=== PATIENT | female | born 1950 | race African-American/Black ===

== ENCOUNTER 2016-11-15 11:59 | Day surgery (SDC) | payer MEDICARE, BC ==
[~2016-11-15 11:59] MED LIST: DIPHENHYDRAMINE HCL 50 MG/ML VIAL ONE; NALOXONE HCL INJ/PF 0.4 MG/1 ML SDV ONE
[2016-11-15] MEDS ORDERED: ONDANSETRON HCL INJ/PF 4 MG/2 ML SDV ONE (12:00)
[2016-11-15] MEDS ORDERED: PROMETHAZINE HCL INJ 25 MG/1 ML VIAL ONE (12:00)
[2016-11-15] MEDS ORDERED: GLUCAGON,HUMAN RECOMB 1 MG INJ ONE (12:01)
[2016-11-15] MEDS ORDERED: EPINEPHRINE INJ 1 MG/10 ML DISP.SYRIN ONE (12:01)
[2016-11-15] MEDS ORDERED: FLUMAZENIL INJ 0.5 MG/5 ML VIAL IV ONE (12:01)
[2016-11-15] MEDS: MIDAZOLAM 2 MG/2 ML INJ ONE ×2 (12:32→12:38)
[2016-11-15] MEDS: FENTANYL CITRATE INJ/PF 100 MCG/2 ML AMPUL ONE ×2 (12:34→12:36)
--- NOTE | 2016-11-15 12:47 | Operative Report ---
Operative Report DATE OF SURGERY: 11/15/16 Operative Report: The risks benefits and alternatives of the procedure explained to the patient in detail and informed consent is obtained that GIF Olympus video scope was inserted into the patient's mouth and hypopharynx the esophagus is identified intubated and insufflated the scope was then advanced through the esophagus stomach and duodenum retroflexion maneuver is done the esophagus stomach and first and second portions of the duodenum examined PREOPERATIVE DIAGNOSIS: Gastroesophageal reflux disease, dyspepsia POSTOPERATIVE DIAGNOSIS: Gastritis, duodenitis OPERATION: EGD with biopsy SURGEON: JAIDEN MARTINES ANESTHESIA: Moderate Sedation - 4 mg of Versed, 75 g of fentanyl. TISSUE REMOVED OR ALTERED: Gastric specimens obtained rule out Helicobacter pylori COMPLICATIONS: None. ESTIMATED BLOOD LOSS: none. INTRAOPERATIVE FINDINGS: Patent esophagus. Gastritis. Duodenitis PROCEDURE: Patient tolerated the procedure well. No immediate postprocedure complications are noted. Patient is discharged in good condition. Discharge date 11/15/2016. Discharge diet: Regular. Discharge activity: Regular. Patient does have a 2-3 week follow-up to discuss findings. Patient is instructed to call the office or proceed to the emergency room to any further problems or questions. Follow-up with biopsies
[2016-11-15 13:46] VITALS: BP 134/60
== END 2016-11-15 13:53 | disposition home or self-care (01) ==
LOC: END 11:59
PROVIDERS: ATTEND Internal Medicine Gastroenterology
PROC: 0DB68ZX Excision of Stomach, Via Natural or Artificial Opening Endoscopic, Diagnostic (ICD-10-PCS; principal; 2016-11-15 12:30)
DX: K21.9 Gastro-esophageal reflux disease without esophagitis (principal); K29.50 Unspecified chronic gastritis without bleeding; K29.80 Duodenitis without bleeding; B96.81 Helicobacter pylori [H. pylori] as the cause of diseases classified elsewhere; I10 Essential (primary) hypertension; E11.9 Type 2 diabetes mellitus without complications; Z72.0 Tobacco use; E78.5 Hyperlipidemia, unspecified; Z79.899 Other long term (current) drug therapy; Z79.4 Long term (current) use of insulin; Z79.82 Long term (current) use of aspirin
CPT/HCPCS: 43239; 82962; 88342 ×2; 88305 ×2; J2250; J3010; J1610; J0171; J1200; J2310; J2405; J2550; J3490

== ENCOUNTER → 2017-06-25 | Outpatient (CLI) | payer MEDICARE, BC ==
--- NOTE | 2017-06-25 14:46 | WOMENS IMAGING REPORT ---
EXAM DESCRIPTION: BILAT SCREENING MAMMO W/CAD COMPLETED DATE/TIME: 06/25/2017 8:20 am REASON FOR STUDY: SCREENING MAMMO Z12.31 ENCNTR SCREEN MAMMOGRAM FOR MALIGNANT NEOPLASM OF EDITH COMPARISON: None. TECHNIQUE: Standard craniocaudal and mediolateral oblique views of each breast recorded using digita l acquisition. LIMITATIONS: None. FINDINGS: No masses, calcifications or architectural distortion. No areas of suspicion. Read with the assistance of CAD. .[facility] - R2 Cenova Version 1.3 .[facility] - R2 Cenova Version 1.3 .[facility] - R2 Cenova Version 2.4 .[facility] [place] - R2 Cenova Version 2.4 .[facility] - R2 Cardiac Tech Version 9.2 IMPRESSION: NORMAL MAMMOGRAM. BIRADS 1. BREAST DENSITY: b. There are scattered areas of fibroglandular density. BIRAD: 1 NEGATIVE RECOMMENDATION: ROUTINE SCREENING COMMENT: The patient has been notified of the results by letter per SA requirements. Additional no tification policies are in place for contacting patient with suspicious or incomplete findings. Quality ID #[id number]: The [employer] recommends an annual screening mammogram for women aged 40 years or over. This facility utilizes a reminder system to ensure that all patients receive reminder letters, and/or direct phone calls for appointments. This includes reminders for routine scr eening mammograms, diagnostic mammograms, or other Breast Imaging Interventions when appropriate. Th is patient will be placed in the appropriate reminder system. The [employer] (ACR) has developed recommendations for screening MRI of the breast s in certain patient populations, to be used in conjunction with mammography. Breast MRI surveillanc e may be appropriate for women with more than 20% lifetime risk of developing breast cancer as deter mined by genetic testing, significant family history of the disease, or history of mantle radiation f or Hodgkins Disease. ACR Practice Guidelines 2008. TECHNICAL DOCUMENTATION: FINDING NUMBER: (1) ASSESSMENT: (1) JOB ID: [id number] [employer]- All Rights Reserved
== END ==
LOC: WI 07:41
PROVIDERS: ATTEND Physician Assistant
DX: Z12.31 Encounter for screening mammogram for malignant neoplasm of breast (principal)
CPT/HCPCS: 77067; G0202

== ENCOUNTER 2018-04-02 08:22 | Emergency (ER) | payer MEDICARE, BC ==
[2018-04-02] MEDS ORDERED: METHYLPREDNISOLONE INJ 125 MG/2 ML SDV IV ONE (09:43)
[2018-04-02] MEDS ORDERED: IPRATROPIUM/ALBUTEROL 0.5-2.5 MG/3 ML AMPUL NEB ONE (09:43)
--- NOTE | 2018-04-02 09:47 | ER Document Report ---
ED General - General Chief Complaint: Breathing Difficulty Stated Complaint: BREATHING DIFFICULTY Time Seen by Provider: 04/02/18 09:20 Mode of Arrival: Ambulatory Information source: Patient Notes: 67-year-old female with hypertension, diabetes, COPD presents with complaint of shortness of breath. Patient reports chronic shortness of breath that has worsened over the last few days. She states that she had a recent increase in her home oxygen from 2 L to 3 L 24 hours a day. Patient states that she came to the hospital today to obtain a chest x-ray which was ordered by her forest manager. She states that without her oxygen she tried to walk into the hospital but became very short of breath and went back to get her oxygen but by that time she could not catch her breath. She does report that she had a right swollen leg last week, which has now resolved. She denies prior history of PE, DVT, cancer, estrogen use, recent travel, recent surgery, recent trauma.. She does have an associated productive cough that she states is chronic. Denies any fever, chills, chest pain, abdominal pain. TRAVEL OUTSIDE OF THE [place] IN LAST 30 DAYS: No - HPI Onset: Other Onset/Duration: Gradual, Persistent, Worse Quality of pain: No pain Severity: None Associated symptoms: Productive cough, Shortness of breath Exacerbated by: Movement, Walking Relieved by: Other - O2 Similar symptoms previously: Yes Recently seen / treated by doctor: Yes - Related Data Allergies/Adverse Reactions: No Known Allergies Allergy (Verified 04/02/18 09:21) Past Medical History - General Information source: Patient, REPLACED BY [facility] Records - Social History Smoking Status: Never Smoker Chew tobacco use (# tins/day): No Frequency of alcohol use: None Drug Abuse: None Lives with: Family Family History: Reviewed & Not Pertinent Patient has suicidal ideation: No Patient has homicidal ideation: No - Past Medical History Cardiac Medical History: Reports: Hx Hypertension Denies: Hx Coronary Artery Disease, Hx Heart Attack Pulmonary Medical History: Reports: Hx COPD Denies: Hx Asthma, Hx Bronchitis, Hx Pneumonia Neurological Medical History: Denies: Hx Cerebrovascular Accident, Hx Seizures Endocrine Medical History: Reports: Hx Diabetes Mellitus Type 2 Renal/ Medical History: Denies: Hx Peritoneal Dialysis Musculoskeltal Medical History: Denies Hx Arthritis Past Surgical History: Reports: Hx Gynecologic Surgery - pap smear cone bx, Hx Hysterectomy, Hx Oral Surgery, Hx Orthopedic Surgery - finger. Denies: Hx Pacemaker - Immunizations Immunizations up to date: Yes Hx Diphtheria, Pertussis, Tetanus Vaccination: Yes Hx Pneumococcal Vaccination: 08/21/16 Review of Systems - Review of Systems Notes: REVIEW OF SYSTEMS: CONSTITUTIONAL : Denies fever, chills, or sweats. Denies recent illness. Denies weight loss, recent hospitalizations. EENT: Denies visula changes, eye pain. Denies nasal or sinus congestion or discharge. Denies sore throat, oral lesions, difficulty swallowing. CARDIOVASCULAR: Denies chest pain. Denies palpitations or racing or irregular heart beat. Denies lower extremity edema. RESPIRATORY: Worsening shortness of breath, increased home O2 requirement. GASTROINTESTINAL: Denies abdominal pain or distention. Denies nausea, vomiting , or diarrhea. Denies blood in vomitus, stools, or per rectum. Denies black, tarry stools. Denies constipation. GENITOURINARY: Denies difficulty urinating, painful urination, burning, frequency, blood in urine, or vaginal discharge. MUSCULOSKELETAL: Denies back or neck pain or stiffness. Denies joint pain or swelling. SKIN: Denies rash, lesions or sores. HEMATOLOGIC : Denies easy bruising or bleeding. LYMPHATIC: Denies swollen, enlarged glands. NEUROLOGICAL: Denies confusion or altered mental status. Denies passing out or loss of consciousness. Denies dizziness or lightheadedness. Denies headache. Denies weakness or paralysis or loss of use of either side. Denies problems with gait or speech. Denies sensory loss, numbness, or tingling. Denies seizures. PSYCHIATRIC: Denies anxiety or stress. Denies depression, suicidal ideation, or homicidal ideation. Physical Exam - Vital signs Vitals: Temp Pulse Resp BP Pulse Ox 97.7 F 103 H 36 H 146/97 H 93 04/02/18 08:39 04/02/18 08:39 04/02/18 08:39 04/02/18 08:39 04/02/18 08:39 - Notes Notes: PHYSICAL EXAMINATION: GENERAL: Well-appearing, well-nourished in mild distress HEAD: Atraumatic, normocephalic. EYES: Pupils equal round and reactive to light, extraocular movements intact, conjunctiva are normal. ENT: Nares patent, oropharynx clear without exudates. Moist mucous membranes. NECK: Normal range of motion, supple without lymphadenopathy LUNGS: Tachypneic. Expiratory wheezing in the lower lung lawson. HEART: tachycardic, regular rhythm without murmurs, no rubs ABDOMEN: Soft, nontender, nondistended abdomen. No guarding, no rebound. No masses appreciated. Female : deferred Musculoskeletal: Normal range of motion, no pitting or edema. No cyanosis. NEUROLOGICAL: Cranial nerves grossly intact. Normal speech, normal gait. Normal sensory, motor exams PSYCH: Normal mood, normal affect. SKIN: Warm, Dry, normal turgor, no rashes or lesions noted. Course - Re-evaluation Re-evalutation: Laboratory 04/02/18 04/02/18 04/02/18 10:19 10:19 10:19 WBC 6.1 RBC 5.68 H Hgb 12.7 Hct 40.4 MCV 71 L MCH 22.3 L MCHC 31.4 L RDW 14.8 H Plt Count 200 Seg Neutrophils % 82.9 H Lymphocytes % 9.5 L Monocytes % 5.3 Eosinophils % 1.9 Basophils % 0.4 Absolute Neutrophils 5.1 Absolute Lymphocytes 0.6 Absolute Monocytes 0.3 Absolute Eosinophils 0.1 Absolute Basophils 0.0 Sodium 143.8 Potassium 4.3 Chloride 105 Carbon Dioxide 27 Anion Gap 12 BUN 14 Creatinine 0.84 Est GFR ( Amer) > 60 Est GFR (Non-Af Amer) > 60 Glucose 150 H Calcium 9.8 Total Bilirubin 0.3 Direct Bilirubin 0.1 Neonat Total Bilirubin Not Reportable Neonat Direct Bilirubin Not Reportable Neonat Indirect Bili Not Reportable AST 38 H ALT 31 Alkaline Phosphatase 78 Creatine Kinase 71 CK-MB (CK-2) 2.25 Troponin I 0.198 NT-Pro-B Natriuret Pep Total Protein 7.4 Albumin 4.3 04/02/18 10:19 WBC RBC Hgb Hct MCV MCH MCHC RDW Plt Count Seg Neutrophils % Lymphocytes % Monocytes % Eosinophils % Basophils % Absolute Neutrophils Absolute Lymphocytes Absolute Monocytes Absolute Eosinophils Absolute Basophils Sodium Potassium Chloride Carbon Dioxide Anion Gap BUN Creatinine Est GFR ( Amer) Est GFR (Non-Af Amer) Glucose Calcium Total Bilirubin Direct Bilirubin Neonat Total Bilirubin Neonat Direct Bilirubin Neonat Indirect Bili AST ALT Alkaline Phosphatase Creatine Kinase CK-MB (CK-2) Troponin I NT-Pro-B Natriuret Pep 62 Total Protein Albumin Chest/Abdomen CTA 04/02/18 09:42 IMPRESSION: Large pericardial effusion Mediastinal and right hilar adenopathy with asymmetric right lung pulmonary vascular congestion and interstitial infiltrates likely related to venous congestion/ lymphatic obstruction at the right hilum. 67-year-old female with hypertension, diabetes, COPD presents with complaint of shortness of breath. Patient reports chronic shortness of breath that has worsened over the last few days. She states that she had a recent increase in her home oxygen from 2 L to 3 L 24 hours a day. Patient states that she came to the hospital today to obtain a chest x-ray which was ordered by her forest manager. She states that without her oxygen she tried to walk into the hospital but became very short of breath and went back to get her oxygen but by that time she could not catch her breath. She does report that she had a right swollen leg last week, which has now resolved. She denies prior history of PE, DVT, cancer, estrogen use, recent travel, recent surgery, recent trauma. Upon arrival patient was placed on general milling superintendent and EKG was obtained which shows the patient to be in sinus tachycardia but does show low voltage throughout. Patient is tachypneic, hypoxic, tachycardic. She is in mild distress. There is no accessory muscle use, diaphoresis. She is able to speak in full sentences. CTA was obtained and negative for PE but did show a large presumably pericardial effusion. Bedside ultrasound was obtained and showed a large pericardial effusion, collapse of the right ventricle and right atrium as well as a plethoric IVC. Patient was placed in trauma 1, pericardiocentesis kit placed at the bedside. Patient received fentanyl during her ED course. She was accepted to [facility] by . She was transferred via air. Patient remained stable throughout her ED course. She remained alert, awake. She had no episodes of hypotension, altered mental status, worsening hypoxia. Patient and family made aware of the findings. She is agreeable to transfer to [facility] for likely pericardial window. Patient reevaluated multiple times and is without need for intubation, pericardiocentesis. 04/02/18 11:33 Bedside ultrasound performed and shows large pericardial effusion with evidence of tamponade. Right atrium collapses. 04/02/18 11:47 [facility] contacted for transfer. 04/02/18 11:48 Patient placed on monitor and pericardial-centesis tray at bedside. 04/02/18 19:56 04/02/18 19:56 04/02/18 20:02 04/02/18 20:04 - Vital Signs Vital signs: Temp Pulse Resp BP Pulse Ox 97.9 F 103 H 32 H 151/97 H 93 04/02/18 12:46 04/02/18 08:39 04/02/18 12:46 04/02/18 12:46 04/02/18 12:46 - Laboratory Result Diagrams: 04/02/18 10:19 04/02/18 10:19 Laboratory results interpreted by me: 04/02/18 04/02/18 10:19 10:19 RBC 5.68 H MCV 71 L MCH 22.3 L MCHC 31.4 L RDW 14.8 H Seg Neutrophils % 82.9 H Lymphocytes % 9.5 L Glucose 150 H AST 38 H - Diagnostic Test Radiology reviewed: Image reviewed, Reports reviewed - EKG Interpretation by Me EKG shows normal: Sinus rhythm Rate: Tachycardia Rhythm: NSR Voltage: Decreased voltage When compared to previous EKG there are: Changes noted Critical Care Note - Critical Care Note Total time excluding time spent on procedures (mins): 40 - minutes of critical care time spent in direct contact evaluating and reevaluating the patient, treating symptoms, reviewing labs and studies and speaking with family and consultants excluding any procedures Discharge - Discharge Clinical Impression: Cardiac tamponade, Pericardial effusion, Hypoxia, Elevated troponin Condition: Serious Disposition: [facility] Referrals: KEV ARANDA PA-C [Primary Care Provider] - Follow up as needed
[2018-04-02 10:40] LABS: ABSOLUTE EOSINOPHILS # (AUTO) 0.1 10^3/uL (0.0-0.6); ABSOLUTE LYMPHOCYTES (AUTO) 0.6 10^3/uL (0.5-4.7); ABSOLUTE MONOCYTES (AUTO) 0.3 10^3/uL (0.1-1.4); ABSOLUTE NEUT (AUTO) 5.1 10^3/uL (1.7-8.2); BASOPHILS % (AUTO) 0.4 % (0-2); EOSINOPHILS % (AUTO) 1.9 % (0-6); HEMATOCRIT 40.4 % (36.0-47.0); HEMOGLOBIN 12.7 g/dL (12.0-15.5); LYMPHOCYTES % (AUTO) 9.5 % (13-45); MEAN CORPUSCULAR HEMOGLOBIN 22.3 pg (27.0-33.4); MEAN CORPUSCULAR HGB CONC 31.4 g/dL (32.0-36.0); MEAN CORPUSCULAR VOLUME 71 fl (80-97); MONOCYTES % (AUTO) 5.3 % (3-13); PLATELET COUNT 200 10^3/uL (150-450); RED BLOOD COUNT 5.68 10^6/uL (3.72-5.28); RED CELL DISTRIBUTION WIDTH 14.8 % (11.5-14.0); SEGMENTED NEUTROPHILS % (AUTO) 82.9 % (42-78); TOTAL CELLS COUNTED % (AUTO) 100 %; WHITE BLOOD COUNT 6.1 10^3/uL (4.0-10.5)
[2018-04-02 10:54] LABS: ALANINE AMINOTRANSFERASE 31 U/L (9-52); ALBUMIN 4.3 g/dL (3.5-5.0); ALKALINE PHOSPHATASE 78 U/L (38-126); ANION GAP 12 (5-19); ASPARTATE AMINO TRANSFERASE 38 U/L (14-36); BILIRUBIN,DIRECT 0.1 mg/dL (0.0-0.4); BILIRUBIN,TOTAL 0.3 mg/dL (0.2-1.3); BLOOD UREA NITROGEN 14 mg/dL (7-20); CALCIUM 9.8 mg/dL (8.4-10.2); CARBON DIOXIDE 27 mmol/L (22-30); CHLORIDE 105 mmol/L (98-107); CREATINE KINASE 71 U/L (30-135); GLUCOSE 150 mg/dL (75-110); POTASSIUM 4.3 mmol/L (3.6-5.0); SODIUM 143.8 mmol/L (137-145); TOTAL PROTEIN 7.4 g/dL (6.3-8.2)
[2018-04-02 11:05] LABS: CREATINE KINASE MB 2.25 ng/mL (<4.55)
[2018-04-02 11:09] LABS: TROPONIN I 0.198 ng/mL
--- NOTE | 2018-04-02 11:33 | RADIOLOGY REPORT (SQ) ---
EXAM DESCRIPTION: CTA CHEST COMPLETED DATE/TIME: 04/02/2018 11:19 am REASON FOR STUDY: sob increased o2 requirement swollen leg COMPARISON: None. TECHNIQUE: CT scan of the chest performed using helical scanning technique with dynamic intravenous contrast injection. Images reviewed with lung, soft tissue and bone windows. Reconstructed coronal and sagittal MPR images reviewed. Additional 3 dimensional post-processing performed to develop Maximal Intensity Projection images ([place] P). All images stored on PACS. All CT scanners at this facility use dose modulation, iterative reconstruction, and/or weight based d osing when appropriate to reduce radiation dose to as low as reasonably achievable (ALARA). [facility]: Dose Right [facility]: CareDose [facility]: Dose Right [facility]: Teradose 4D [facility]: [employer] CONTRAST TYPE AND DOSE: Contrast bolus optimized for the pulmonary arteries. Not diagnostic for the aorta. RENAL FUNCTION: Creatinine 0.84 RADIATION DOSE: CT Rad equipment meets quality standard of care and radiation dose reduction techniq ues were employed. CTDIvol: 16.5 - 17.1 mGy. DLP: 612 mGy-cm. . LIMITATIONS: None. FINDINGS: LUNGS AND PLEURA: Lung apices exhibit moderate changes of obstructive lung disease right g reater than left. There is pulmonary vascular congestion with alveolar and interstitial infiltrate throughout the right lung. Patient has a large right hilar mass, lymphangitic spread of tumor in the right lung is possi ble. No right pleural effusion or pneumothorax. On the left side, no focal infiltrates are present. No pleural effusion. No pneumothorax. No left long pulmonary venous congestion. AORTA AND GREAT VESSELS: No aneurysm. Contrast bolus not optimized for the aorta. HEART: Large pericardial effusion. No significant coronary artery calcifications. PULMONARY ARTERIES: No emboli visualized in the main pulmonary arteries or the segmental branches. HILAR AND MEDIASTINAL STRUCTURES: There is diffuse mediastinal adenopathy, with the right peritrachea l 3.3 x 2.3 cm lymph node axial image 22, a prevascular 3.3 x 1.8 cm lymph node axial image 34, a rig ht hilar mass/ lymph node 3.2 by 2.8 cm axial image 48. HARDWARE: None in the chest. UPPER ABDOMEN: No significant findings. Limited exam. THYROID AND OTHER SOFT TISSUES: No masses. No adenopathy. BONES: No acute or significant finding. 3D MIPS: Confirm above findings. OTHER: Report discussed with Dr. Miller in the emergency room IMPRESSION: Large pericardial effusion Mediastinal and right hilar adenopathy with asymmetric right lung pulmonary vascular congestion and i nterstitial infiltrates likely related to venous congestion/ lymphatic obstruction at the right hilum . COMMENT: Quality ID # [id number]: Final reports with documentation of one or more dose reduction techniques (e.g., Automated exposure control, adjustment of the mA and/or kV according to patient size, use of iterative reconstruction technique) TECHNICAL DOCUMENTATION: JOB ID: [id number]- All Rights Reserved Reading location - IP/workstation name: [email or web address] [id number]
[2018-04-02] MEDS ORDERED: NORMAL SALINE 1000 ML 1,000 ML IV ONE (12:10)
[2018-04-02] MEDS ORDERED: FENTANYL CITRATE INJ/PF 100 MCG/2 ML AMPUL IV ONE (12:35)
[2018-04-02 13:11] VITALS: BP 151/97
--- NOTE | 2018-04-02 13:27 | EKG REPORT ---
SEVERITY:- BORDERLINE ECG - SINUS RHYTHM LOW VOLTAGE THROUGHOUT : Confirmed by: Oj Coleman MD 02-Apr-2018 13:26:53
== END 2018-04-02 12:50 | disposition short-term general hospital (02) ==
LOC: ER 08:22
DX: I31.3 Pericardial effusion (noninflammatory) (principal); I31.4 Cardiac tamponade; R74.8 Abnormal levels of other serum enzymes; R09.02 Hypoxemia; I10 Essential (primary) hypertension; J44.9 Chronic obstructive pulmonary disease, unspecified; E11.9 Type 2 diabetes mellitus without complications; Z99.81 Dependence on supplemental oxygen; R05 Cough; R59.0 Localized enlarged lymph nodes; R00.0 Tachycardia, unspecified
CPT/HCPCS: 93005; 94640; 99291; 96374; 96375; 36415; 82553; 82550; 85025; 80053; 84484; 83880; 71275; 93010; J3010; J2930; J7030; A9270; J7620

== ENCOUNTER → 2019-09-21 | Outpatient (CLI) | payer MEDICARE, BC ==
--- NOTE | 2019-09-21 09:17 | RADIOLOGY REPORT (SQ) ---
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 Images reviewed with lung, soft tissue and bone windows. Reconstructed coronal and sagittal MPR images reviewed. All images st ored on PACS. All CT scanners at this facility use dose modulation, iterative reconstruction, and/or weight based d osing when appropriate to reduce radiation dose to as low as reasonably achievable (ALARA). [facility]: Dose Right [facility]: CareDose [facility]: Dose Right [facility]: Teradose 4D [facility]: [employer] RADIATION DOSE: CT Rad equipment meets quality standard of care and radiation dose reduction techniq ues were employed. CTDIvol: 14.8 mGy. DLP: 584 mGy-cm. mGy. LIMITATIONS: No technical limitations. FINDINGS: LUNGS AND PLEURA: Obstructive lung disease is present in the bilateral upper lobes. There is also now increased interstitial markings throughout the medial aspect of the right upper lobe and medial aspect left upper lobe which could represent post radiation fibrosis. Trace right pleural effusion. No left pleural effusion No pneumothorax. No acute infiltrates. Airways are patent. HILAR AND MEDIASTINAL STRUCTURES: No mediastinal adenopathy. Right paratracheal lymph nodes seen on CT 04/02/2018 is no longer identified. No right hilar mass. HEART AND VASCULAR STRUCTURES: Stable cardiomegaly. Trace pericardial effusion UPPER ABDOMEN: 3 cm right upper pole renal cortical cyst THYROID AND OTHER SOFT TISSUES: No masses. No adenopathy. BONES: No significant finding. HARDWARE: None OTHER: No other significant findings. IMPRESSION: Right hilar mass, right paratracheal adenopathy has resolved. Obstructive lung disease. TECHNICAL DOCUMENTATION: JOB ID: [id number] Quality ID # [id number]: Final reports with documentation of one or more dose reduction techniques (e.g., Au tomated exposure control, adjustment of the mA and/or kV according to patient size, use of iterative reconstruction technique) 2010 [employer]- All Rights Reserved Reading location - IP/workstation name: [email or web address]
== END ==
LOC: RAD 08:04
PROVIDERS: ATTEND Radiology Radiation Oncology
DX: C34.91 Malignant neoplasm of unspecified part of right bronchus or lung (principal); J44.9 Chronic obstructive pulmonary disease, unspecified
CPT/HCPCS: 71250

== ENCOUNTER 2019-10-01 14:32 | Inpatient (IN) | payer BC, MEDICARE ==
[2019-10-01 15:31] LABS: INTERNATIONAL RATION (INR) 1.31; PROTHROMBIN TIME 16.4 SEC (11.4-15.4)
[2019-10-01 15:32] LABS: PARTIAL THROMBOPLASTIN TIME 33.2 SEC (23.5-35.8)
[2019-10-01 15:37] LABS: ALBUMIN 3.5 g/dL (3.5-5.0); ALKALINE PHOSPHATASE 93 U/L (38-126); ANION GAP 14 (5-19); ASPARTATE AMINO TRANSFERASE 22 U/L (14-36); BILIRUBIN,DIRECT 0.2 mg/dL (0.0-0.4); BILIRUBIN,TOTAL 0.7 mg/dL (0.2-1.3); BLOOD UREA NITROGEN 11 mg/dL (7-20); CALCIUM 8.9 mg/dL (8.4-10.2); CARBON DIOXIDE 21 mmol/L (22-30); CHLORIDE 106 mmol/L (98-107); GLUCOSE 124 mg/dL (75-110); POTASSIUM 3.5 mmol/L (3.6-5.0)
[2019-10-01] MEDS ORDERED: ENOXAPARIN SODIUM INJ 100 MG/1 ML DISP.SYRIN SUBCUT ONE (16:49)
[2019-10-01] MEDS ORDERED: HEPARIN SOD (PORCINE) 1,000 UNIT/ML 10 ML VIAL IV ONE (17:07)
[2019-10-01 17:25] LABS: ABSOLUTE BASOPHILS # (AUTO) 0.1 10^3/uL (0.0-0.2); ABSOLUTE LYMPHOCYTES (AUTO) 0.7 10^3/uL (0.5-4.7); ABSOLUTE MONOCYTES (AUTO) 0.6 10^3/uL (0.1-1.4); ABSOLUTE NEUT (AUTO) 6.5 10^3/uL (1.7-8.2); BASOPHILS % (AUTO) 0.7 % (0-2); EOSINOPHILS % (AUTO) 0.4 % (0-6); HEMATOCRIT 33.6 % (36.0-47.0); HEMOGLOBIN 10.5 g/dL (12.0-15.5); LYMPHOCYTES % (AUTO) 8.5 % (13-45); MEAN CORPUSCULAR HEMOGLOBIN 22.3 pg (27.0-33.4); MEAN CORPUSCULAR HGB CONC 31.4 g/dL (32.0-36.0); MEAN CORPUSCULAR VOLUME 71 fl (80-97); MONOCYTES % (AUTO) 7.3 % (3-13); RED BLOOD COUNT 4.74 10^6/uL (3.72-5.28); RED CELL DISTRIBUTION WIDTH 19.2 % (11.5-14.0); SEGMENTED NEUTROPHILS % (AUTO) 83.1 % (42-78); TOTAL CELLS COUNTED % (AUTO) 100 %; WHITE BLOOD COUNT 7.8 10^3/uL (4.0-10.5)
[2019-10-01 17:33] LABS: PLATELET COUNT 84 10^3/uL (150-450)
--- NOTE | 2019-10-01 17:56 | ER Document Report ---
ED General - General Chief Complaint: Shortness Of Breath Stated Complaint: SHORTNESS OF BREATH Time Seen by Provider: 10/01/19 14:52 Primary Care Provider: TIARA CHAPMAN PA-C [Primary Care Provider] - Follow up as needed TRAVEL OUTSIDE OF THE [place] IN LAST 30 DAYS: No - HPI Notes: Patient is a 69-year-old female with a known history of metastatic lung adenocarcinoma, status post multiple chemotherapy and radiation treatments, who presents emergency department for evaluation. She was seen in Dr. Hood's office earlier today, was found to be hypoxic and tachycardic. She was sent for CT angiogram which revealed bilateral lower lobe pulmonary emboli. The patient denies any pain. She states she has been somewhat short of breath. No hemoptysis. She states she is been taking her medications as prescribed, including Xarelto, which she is unsure why she takes. - Related Data Allergies/Adverse Reactions: No Known Allergies Allergy (Verified 04/02/18 09:21) Past Medical History - General Information source: Patient - Social History Smoking Status: Former Smoker Family History: Reviewed & Not Pertinent Patient has suicidal ideation: No Patient has homicidal ideation: No - Past Medical History Cardiac Medical History: Reports: Hx Hypercholesterolemia, Hx Hypertension, Hx Pulmonary Embolism Denies: Hx Coronary Artery Disease, Hx Heart Attack Pulmonary Medical History: Reports: Hx COPD Denies: Hx Asthma, Hx Bronchitis, Hx Pneumonia Neurological Medical History: Denies: Hx Cerebrovascular Accident, Hx Seizures Endocrine Medical History: Reports: Hx Diabetes Mellitus Type 2 Renal/ Medical History: Denies: Hx Peritoneal Dialysis Malignancy Medical History: Reports: Hx Lung Cancer GI Medical History: Reports: Hx Gastroesophageal Reflux Disease Musculoskeletal Medical History: Denies Hx Arthritis Past Surgical History: Reports: Hx Gynecologic Surgery - pap smear cone bx, Hx Hysterectomy, Hx Oral Surgery, Hx Orthopedic Surgery - finger. Denies: Hx Pacemaker - Immunizations Immunizations up to date: Yes Hx Diphtheria, Pertussis, Tetanus Vaccination: Yes Hx Pneumococcal Vaccination: 08/21/16 Review of Systems - Review of Systems Constitutional: No symptoms reported EENT: No symptoms reported Cardiovascular: No symptoms reported Respiratory: See HPI Gastrointestinal: No symptoms reported Genitourinary: No symptoms reported Musculoskeletal: No symptoms reported Skin: No symptoms reported Neurological/Psychological: No symptoms reported Physical Exam - Vital signs Vitals: Resp Pulse Ox 27 H 89 L 10/01/19 14:42 10/01/19 14:42 - Notes Notes: This is a 69-year-old female who appears mildly older than her stated age, no acute distress. She is mildly tachypneic, but otherwise resting comfortably. Vital signs reviewed, please refer to chart. Head is normocephalic, atraumatic. Pupils equal round, reactive to light. Neck is supple without meningismus. Heart is regular rate and rhythm. Lungs reveal diminished breath sounds but no wheezes, rales, rhonchi. Abdomen is soft, nontender, normoactive bowel sounds throughout. Extremities without cyanosis, clubbing. Posterior calves are nontender. Peripheral pulses are equal. Skin is warm and dry. Patient is awake, alert, neurological exam is nonfocal. Course - Re-evaluation Re-evalutation: 10/01/19 17:54 Patient presents emergency department for evaluation. She has known pulmonary emboli. She laboratory medications obtained, EKG. I did order coags as well. No significant change compared to prior study. There was a delay in obtaining her CBC because her platelets had initially been low, but this was found to be artifactual. Her troponin was elevated. I suspect this is likely secondary to the pulmonary emboli. Initially I spoke with her primary care physician, who recommended that I speak to her oncologist. I was unable to directly reach her oncologist, but I did speak to the oncology fellow, Dr. Alvarez, regarding this patient. He states certainly this patient needs medical admission, but he is not see it is urgent at this point that the patient be transferred to [facility]. In the meantime I spoke with Dr. Hood, who did speak directly with her oncologist, who had additional concerns and recommended that she be transferred. The patient, however, does not want to be transferred. We talked at length about the increased risk of staying here, especially with her multiple comorbidities. She voiced understanding and still wants to stay here in the this smaller [facility] without the same intervention capabilities. She voiced understanding this and still wants to stay. Dr. Hood will take care of the patient here. An echocardiogram was ordered at his behest, and Dr. Romero was notified in regards to consultation on this patient as well as need for evaluation of the echocardiogram. Otherwise, patient is currently stable, on oxygen, heart rate of 105. We will admit the patient to [facility] for further care. 10/01/19 17:56 - Vital Signs Vital signs: Temp Pulse Resp BP Pulse Ox 97.9 F 20 144/74 H 94 10/01/19 14:45 10/01/19 17:01 10/01/19 17:01 10/01/19 17:01 - Laboratory Result Diagrams: 10/01/19 16:47 10/01/19 14:42 Laboratory results interpreted by me: 10/01/19 10/01/19 10/01/19 14:42 14:42 16:47 Hgb 10.5 L Hct 33.6 L MCV 71 L MCH 22.3 L MCHC 31.4 L RDW 19.2 H Plt Count 84 L Lymph % (Auto) 8.5 L Seg Neutrophils % 83.1 H PT 16.4 H Potassium 3.5 L Carbon Dioxide 21 L Est GFR (MDRD) Non-Af 54 L Glucose 124 H - Diagnostic Test Radiology reviewed: Reports reviewed Radiology results interpreted by me: 10/01/19 17:56 Radiology report from earlier today reviewed - EKG Interpretation by Me Additional EKG results interpreted by me: 10/01/19 17:56 Sinus tachycardia with a rate of 105 bpm. Right axis deviation. Near global T wave inversion, concerning for ischemia Critical Care Note - Critical Care Note Total time excluding time spent on procedures (mins): 45 Discharge - Discharge Clinical Impression: Hypoxia Pulmonary emboli Qualifiers: Chronicity: acute Acute cor pulmonale presence: unspecified Condition: Stable Disposition: ADMITTED INPATIENT Admitting Provider: Hood Unit Admitted: [facility] Referrals: TIARA CHAPMAN PA-C [Primary Care Provider] - Follow up as needed
[2019-10-01] MEDS ORDERED: ONDANSETRON HCL INJ/PF 4 MG/2 ML SDV IV PRN (18:10)
[2019-10-01] MEDS ORDERED: ACETAMINOPHEN 325 MG TABLET PO PRN (18:10)
[2019-10-01] MEDS ORDERED: DEXTROSE 50%-WATER 25 GM/50 ML DISP.SYRIN IV PRN ×4 (18:17→18:22)
[2019-10-01] MEDS ORDERED: DEXTROSE 40% GEL 15 GM TUBE PO PRN ×4 (18:17→18:22)
[2019-10-01] MEDS ORDERED: GLUCAGON,HUMAN RECOMB 1 MG INJ IM PRN ×2 (18:17→18:22)
--- NOTE | 2019-10-01 18:21 | Progress Note ---
Provider Note Provider Note: Patient seen and examined and very extensive discussion with the patient Oncology At [facility] and patience do not want to go to the [place] want to stay here at this point admitting the patient in the hospital for the recurrent be elevated troponin and cancel the local Oncology and cardiologyAnd the patient understand about the not going to the [facility] but will continue to treat the patient should have a stage four lung cancer with the pericardial involvement Patient admitting in the [facility] you start at a lower looks therapy nebulizer treatment and oxygen and hopefully patients improve discussed with the patient and the family regarding the patiesnt current conditions
--- NOTE | 2019-10-01 18:43 | PDOC CONSULTATION ---
Consultation Consult Date: 10/01/19 Attending physician:: FRANTZ HOOD Provider Consulted: GONSALO LINDER Consult reason:: Pericardial effusion, Elevated Troponin History of Present Illness Admission Date/PCP: 10/01/19 18:11 TIARA CHAPMAN PA-C Patient complains of: Dyspnea History of Present Illness: FLO STOLL is a 69 year old female Who presented to the office of Dr. Hood with complaints of respiratory distress. CT scan of the chest was performed in the emergency room which showed the presence of bilateral pulmonary emboli. Patient is known to have stage IV lung cancer involving both lungs. It is reported to me that last year patient h ad a similar presentation with malignant process involving the pericardium with pericardial effusion. She ended up requiring a pericardial window at [place]. Presently since admission to the emergency room her symptoms are much improved. She no longer reports any dyspnea. Apparently she was p rofoundly hypoxemic earlier. She is resting comfortably. She is a former smoker. She does not have any ports. She has had immunotherapy chemotherapy as well as radiation. No familial illnesses are documented. Past Medical History Cardiac Medical History: Reports: Hyperlipidema, Hypertension, Pulmonary Embolism Denies: Coronary Artery Disease, Myocardial Infarction Pulmonary Medical History: Reports: Chronic Obstructive Pulmonary Disease (COPD) Denies: Asthma, Bronchitis, Pneumonia Neurological Medical History: Denies: Seizures Endocrine Medical History: Reports: Diabetes Mellitus Type 2 Malignancy Medical History: Reports: Lung Cancer GI Medical History: Reports: Gastroesophageal Reflux Disease Musculoskeltal Medical History: Denies: Arthritis Hematology: Denies: Anemia Past Surgical History Past Surgical History: Reports: Hysterectomy, Orthopedic Surgery - finger Denies: Pacemaker Social History Smoking Status: Former Smoker Family History Family History: Reviewed & Not Pertinent Parental Family History Reviewed: Yes - No familial illnesses Children Family History Reviewed: NA Sibling(s) Family History Reviewed.: NA Medication/Allergy Home Medications: Fluticasone/Umeclidin/Vilanter [Trelegy 100-62.5-25 Mcg Ellipta 14 Dose/Dpi] 1 puff IH DAILY 04/02/18 Insulin Glargine,Hum.rec.anlog [Lantus] 50 unit SQ QHS 04/02/18 Losartan/Hydrochlorothiazide [Losartan-Hctz 50-12.5 mg Tab] 1 each PO DAILY 04/02/18 Pravastatin Sodium 20 mg PO DAILY 04/02/18 Allergies/Adverse Reactions: No Known Allergies Allergy (Verified 04/02/18 09:21) Review of Systems Breasts: PRESENT: as per HPI Cardiovascular: PRESENT: as per HPI Respiratory: PRESENT: cough, dyspnea Physical Exam Vital Signs: Temp Pulse Resp BP Pulse Ox 97.9 F 20 144/74 H 94 10/01/19 14:45 10/01/19 17:01 10/01/19 17:01 10/01/19 17:01 Intake & Output 09/30/19 10/01/19 10/02/19 06:59 06:59 06:59 Weight 88.3 kg General appearance: PRESENT: no acute distress, obese Head exam: PRESENT: atraumatic, normocephalic Eye exam: PRESENT: conjunctiva pink, EOMI Mouth exam: PRESENT: moist Neck exam: PRESENT: other - There are no dilated neck veins. Kussmaul sign is negative. Respiratory exam: PRESENT: rales - Basal, tachypnea, wheezes Cardiovascular exam: PRESENT: +S1, +S2, tachycardia GI/Abdominal exam: PRESENT: soft Rectal exam: PRESENT: deferred Musculoskeletal exam: PRESENT: normal inspection Neurological exam: PRESENT: alert, awake, oriented to person, oriented to place, oriented to time Psychiatric exam: PRESENT: appropriate affect Skin exam: PRESENT: dry, warm Results Laboratory Results: 10/01/19 16:47 10/01/19 14:42 10/01/19 10/01/19 10/01/19 14:42 14:42 16:47 WBC Cancelled 7.8 RBC Cancelled 4.74 Hgb Cancelled 10.5 L Hct Cancelled 33.6 L MCV Cancelled 71 L MCH Cancelled 22.3 L MCHC Cancelled 31.4 L RDW Cancelled 19.2 H Plt Count Cancelled 84 L Seg Neutrophils % Cancelled 83.1 H Sodium 141.0 Potassium 3.5 L Chloride 106 Carbon Dioxide 21 L Anion Gap 14 BUN 11 Creatinine 1.02 Est GFR ( Amer) > 60 Glucose 124 H Calcium 8.9 Total Bilirubin 0.7 AST 22 Alkaline Phosphatase 93 Total Protein 7.0 Albumin 3.5 10/01/19 14:42 Troponin I 0.245 EKG Comments: Twelve-lead EKG 10/01/2019. 1525 hrs. Sinus tachycardia, left axis deviation, poor R wave progression, nonspecific ST- T abnormalities, ventricular rate is 105 bpm, QTC is mildly prolonged at [address] chest, right hilar mass, infiltrative lung process, no significant pericardial effusion is mentioned. Multiple pulmonary emboli were noted. Assessment & Plan - Diagnosis (1) Elevated troponin Plan: Possibly on account of hypoxia and or right ventricular strain in the context of pulmonary embolism. Supportive care. Does not appear to be ACS. EKG and clinical presentation do not support this to be the case. (2) Hypoxia Is this a current diagnosis for this admission?: Yes Plan: Hypoxia appears to be better. Profound hypoxic and resultant troponin elevation. Likely this is the explanation given clinical context. Patient does not have prior history of coronary artery disease and does not behave like acute coronary syndrome. Supplemental oxygen and systemic anticoagulation for pulmonary embolism (3) Pulmonary emboli Qualifiers: Chronicity: acute Acute cor pulmonale presence: unspecified Is this a current diagnosis for this admission?: Yes Plan: Presently on enoxaparin therapy. Transition to directly acting oral agents for long-term systemic anticoagulation. (5) Pericardial effusion Is this a current diagnosis for this admission?: Yes Plan: Clinical presentation does not suggest the presence of a significant pericardial effusion. She has acceptable voltage on her EKGs and is only mildly tachycardic and is not hypotensive CT scan does not suggest the presence of significant pericardial effusion We will obtain transthoracic echocardiogram to evaluate this further. - Notes Notes: Supportive care for pulmonary embolism including systemic anticoagulation and supplemental oxygen We will obtain transthoracic echocardiogram to evaluate for pericardial effusion. Family was updated regarding the care plan as well.
[2019-10-01] MEDS: ENOXAPARIN SODIUM INJ 100 MG/1 ML DISP.SYRIN SUBCUT SCH (20:01)
[2019-10-01] MEDS ORDERED: HEPARIN SOD (PORCINE) 1,000 UNIT/ML 10 ML VIAL IV PRN (20:08)
[2019-10-01] MEDS: IPRATROPIUM/ALBUTEROL 0.5-2.5 MG/3 ML AMPUL NEB SCH (20:35)
--- NOTE | 2019-10-01 20:58 | EKG REPORT ---
SEVERITY:- ABNORMAL ECG - SINUS TACHYCARDIA LAD, CONSIDER LEFT ANTERIOR FASCICULAR BLOCK ABNRM R PROG, CONSIDER ASMI OR LEAD PLACEMENT NONSPECIFIC T ABNORMALITIES, DIFFUSE LEADS , NEW CHANGES SINCE 04/02/18 EKG. BORDERLINE PROLONGED QT INTERVAL : Confirmed by: Oj Coleman MD 01-Oct-2019 20:58:07
[2019-10-01] MEDS ORDERED: ENOXAPARIN SODIUM INJ 100 MG/1 ML DISP.SYRIN SUBCUT SCH ×2 (22:00)
[2019-10-01 22:38] LABS: ANION GAP 13 (5-19); BLOOD UREA NITROGEN 11 mg/dL (7-20); CALCIUM 9.5 mg/dL (8.4-10.2); CARBON DIOXIDE 23 mmol/L (22-30); CHLORIDE 105 mmol/L (98-107); GLUCOSE 220 mg/dL (75-110); POTASSIUM 3.8 mmol/L (3.6-5.0)
[2019-10-01] MEDS ORDERED: INSULIN GLARGINE,HUM.REC.ANLOG 1,000 UNIT/10 ML VIAL (PYX) SUBCUT ONE ×2 (22:39→22:53)
[2019-10-01] MEDS: INSULIN LISPRO 100 UNIT/ML 3 ML VIAL SUBCUT SCH (22:44)
[2019-10-01] MEDS: LOSARTAN POTASSIUM 50 MG TABLET PO SCH (22:44)
[2019-10-01] MEDS: INSULIN GLARGINE,HUM.REC.ANLOG 1,000 UNIT/10 ML VIAL SUBCUT SCH (22:55)
[2019-10-01] MEDS ORDERED: INFLUENZA QUAD (6MOS+) 2019-20 VAC 0.5 ML SYR IM ONE (23:24)
[2019-10-02] MEDS: IPRATROPIUM/ALBUTEROL 0.5-2.5 MG/3 ML AMPUL NEB SCH ×4 (02:31→20:41)
[2019-10-02 05:09] LABS: ABSOLUTE EOSINOPHILS # (AUTO) 0.1 10^3/uL (0.0-0.6); ABSOLUTE LYMPHOCYTES (AUTO) 0.7 10^3/uL (0.5-4.7); ABSOLUTE MONOCYTES (AUTO) 0.7 10^3/uL (0.1-1.4); ABSOLUTE NEUT (AUTO) 5.6 10^3/uL (1.7-8.2); BASOPHILS % (AUTO) 0.5 % (0-2); HEMATOCRIT 30.2 % (36.0-47.0); HEMOGLOBIN 9.6 g/dL (12.0-15.5); LYMPHOCYTES % (AUTO) 9.7 % (13-45); MEAN CORPUSCULAR HEMOGLOBIN 22.2 pg (27.0-33.4); MEAN CORPUSCULAR HGB CONC 31.6 g/dL (32.0-36.0); MEAN CORPUSCULAR VOLUME 70 fl (80-97); MONOCYTES % (AUTO) 9.5 % (3-13); RED CELL DISTRIBUTION WIDTH 18.7 % (11.5-14.0); SEGMENTED NEUTROPHILS % (AUTO) 79.3 % (42-78); TOTAL CELLS COUNTED % (AUTO) 100 %
[2019-10-02 05:28] LABS: PLATELET COUNT 65 10^3/uL (150-450)
[2019-10-02 05:35] LABS: CREATINE KINASE MB 1.56 ng/mL (<4.55)
[2019-10-02 05:52] LABS: TROPONIN I 0.224 ng/mL
[2019-10-02] MEDS: PANTOPRAZOLE SODIUM 40 MG TABLET.DR PO SCH (06:02)
[2019-10-02] MEDS: INSULIN LISPRO 100 UNIT/ML 3 ML VIAL SUBCUT SCH ×4 (07:53→21:56)
--- NOTE | 2019-10-02 08:25 | PDOC H&P ---
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 with a history of the pericardial effusions status post pericardial window at [place] last year patient is currently see thoracic oncology at [place] finished the chemo And immunotherapy and a recurrent of the disease with the last PET scan was done in AprilSocial some positive lymph node with negative MRI and patient was started on a radiation's treatments Patient also have a history of the pulmonary embolisms as per her record last year and currently taking the Xarelto but unfortunately patient unable about the blood clot No significant history of the COPD and oxygen dependent but currently not taking the oxygen at home's for since last couple of months came to my office yesterday with a complaining of a short of breath after long time from the last visit and patient was complaining some mild cough in my office patient O2 sat her resting condition was 80%'s and patient's walk to dropped up to 64 patient was put on at 2 L nasal cannula to go up to 90 to 94%'s At this point patient was sent to the CT angiogram because of the hypoxia as outpatients suggesting that multiple arteries on pulmonary have a some PE and patient was sent to the emergency department In the ER patient troponin was elevated but other than that no other acute findings patient is obviously taking the Xarelto with this blood clot not sure whether is old or new patient was put on the Lovenox and consult the local oncology Discussed with the patient's oncology Dr. whitlock At [place] myself and suggest that if the patient wants to come will transfer otherwise treat with over there with the injection therapy and repeat the echocardiogram Patients do not want to go to the [place] wants to continue to treatment here and start the patient on a Lovenox injection therapy consult the cardiology for further evaluation about elevated troponin and a history of the pericardial involvement the lung cancer Patients after putting the oxygen feeling much better denied any chest pain no short of breath some mild cough but other than that no other symptoms Very extensive discussions with the patient's and the family and the bedside regarding the all the test reports with the stage IV cancers recurrent clots and elevated troponin and patient understand very well Past Medical History Cardiac Medical History: Reports: Hyperlipidema, Hypertension, Pulmonary Embolism Denies: Coronary Artery Disease, Myocardial Infarction Cardiac History Note: Pericardial effusion status post window Pulmonary Medical History: Reports: Chronic Obstructive Pulmonary Disease (COPD) Denies: Asthma, Bronchitis, Pneumonia Neurological Medical History: Denies: Seizures Endocrine Medical History: Reports: Diabetes Mellitus Type 2 Malignancy Medical History: Reports: Lung Cancer Malignancy History Note: Stage IV lung cancer status post chemo and immunotherapy with the pericardium involvement GI Medical History: Reports: Gastroesophageal Reflux Disease Musculoskeltal Medical History: Denies: Arthritis Hematology: Denies: Anemia Past Surgical History Past Surgical History: Reports: Hysterectomy, Orthopedic Surgery - finger Denies: Pacemaker Social History Smoking Status: Former Smoker Last Time Smoked: 2016 Frequency of Alcohol Use: Occasional Hx Recreational Drug Use: No Family History Family History: Reviewed & Not Pertinent Parental Family History Reviewed: Yes Children Family History Reviewed: Yes Sibling(s) Family History Reviewed.: Yes Medication/Allergy Home Medications: Atorvastatin Calcium [Lipitor 40 mg Tablet] 40 mg PO QHS 10/01/19 Fluticasone/Umeclidin/Vilanter [Trelegy 100-62.5-25 Mcg Ellipta 14 Dose/Dpi] 1 puff IH DAILY 10/01/19 Insulin Glargine,Hum.rec.anlog [Lantus Insulin 100 Unit/1 ml 10 ml] 10 unit SQ DAILY 10/01/19 Insulin Glargine,Hum.rec.anlog [Lantus Insulin 100 Unit/1 ml 10 ml] 50 unit SQ QHS 10/01/19 Lisinopril [Prinivil 10 mg Tablet] 10 mg PO DAILY 10/01/19 Metformin HCl [Metformin HCl ER] 500 mg PO BID 10/01/19 Rivaroxaban [Xarelto] 20 mg PO DAILY 10/01/19 Allergies/Adverse Reactions: No Known Allergies Allergy (Verified 04/02/18 09:21) Review of Systems Constitutional: ABSENT: chills, fever(s), headache(s), weight gain, weight loss Eyes: ABSENT: visual disturbances Ears: ABSENT: hearing changes Cardiovascular: PRESENT: dyspnea on exertion. ABSENT: chest pain, edema, orthropnea, palpitations Respiratory: ABSENT: cough, hemoptysis Gastrointestinal: ABSENT: abdominal pain, constipation, diarrhea, hematemesis, hematochezia, nausea, vomiting Genitourinary: ABSENT: dysuria, hematuria Musculoskeletal: ABSENT: joint swelling Integumentary: ABSENT: rash, wounds Neurological: ABSENT: abnormal gait, abnormal speech, confusion, dizziness, focal weakness, syncope Psychiatric: ABSENT: anxiety, depression, homidical ideation, suicidal ideation Endocrine: ABSENT: cold intolerance, heat intolerance, menstrual abnormalities, polydipsia, polyuria Hematologic/Lymphatic: ABSENT: easy bleeding, easy bruising, lymphadenopathy Physical Exam Vital Signs: Temp Pulse Resp BP Pulse Ox 97.7 F 103 H 16 147/71 H 95 10/01/19 23:31 10/02/19 07:00 10/02/19 02:30 10/01/19 23:31 10/02/19 02:30 Intake & Output 10/01/19 10/02/19 10/03/19 06:59 06:59 06:59 Weight 90.3 kg General appearance: PRESENT: no acute distress, well-developed, well-nourished Head exam: PRESENT: atraumatic, normocephalic Eye exam: PRESENT: conjunctiva pink, EOMI, PERRLA. ABSENT: scleral icterus Ear exam: PRESENT: normal external ear exam Mouth exam: PRESENT: moist, tongue midline Neck exam: PRESENT: full ROM. ABSENT: carotid bruit, JVD, lymphadenopathy, thyr omegaly Respiratory exam: PRESENT: decreased breath sounds Cardiovascular exam: PRESENT: RRR. ABSENT: diastolic murmur, rubs, systolic murmur Pulses: PRESENT: normal dorsalis pedis pul, +2 pedal pulses bilateral Vascular exam: PRESENT: normal capillary refill GI/Abdominal exam: PRESENT: normal bowel sounds, soft. ABSENT: distended, guarding, mass, organolmegaly, rebound, tenderness Rectal exam: PRESENT: deferred Extremities exam: ABSENT: pedal edema Musculoskeletal exam: PRESENT: ambulatory Neurological exam: PRESENT: alert, awake, oriented to person, oriented to place, oriented to time, oriented to situation, CN II-XII grossly intact. ABSENT: motor sensory deficit Psychiatric exam: PRESENT: appropriate affect, normal mood. ABSENT: homicidal ideation, suicidal ideation Skin exam: PRESENT: dry, intact, warm. ABSENT: cyanosis, rash Results Laboratory Results: 10/02/19 04:43 10/01/19 22:02 10/01/19 10/01/19 10/01/19 14:42 14:42 16:47 WBC Cancelled 7.8 RBC Cancelled 4.74 Hgb Cancelled 10.5 L Hct Cancelled 33.6 L MCV Cancelled 71 L MCH Cancelled 22.3 L MCHC Cancelled 31.4 L RDW Cancelled 19.2 H Plt Count Cancelled 84 L Seg Neutrophils % Cancelled 83.1 H Sodium 141.0 Potassium 3.5 L Chloride 106 Carbon Dioxide 21 L Anion Gap 14 BUN 11 Creatinine 1.02 Est GFR ( Amer) > 60 Glucose 124 H Calcium 8.9 Magnesium Total Bilirubin 0.7 AST 22 Alkaline Phosphatase 93 Total Protein 7.0 Albumin 3.5 10/01/19 10/02/19 10/02/19 22:02 04:43 04:43 WBC 7.0 RBC 4.30 Hgb 9.6 L Hct 30.2 L MCV 70 L MCH 22.2 L MCHC 31.6 L RDW 18.7 H Plt Count 65 L Seg Neutrophils % 79.3 H Sodium 140.7 Potassium 3.8 Chloride 105 Carbon Dioxide 23 Anion Gap 13 BUN 11 Creatinine 1.14 Est GFR ( Amer) 57 L Glucose 220 H Calcium 9.5 Magnesium 1.9 Total Bilirubin AST Alkaline Phosphatase Total Protein Albumin 10/01/19 10/02/19 10/02/19 14:42 04:43 04:43 Creatine Kinase 55 CK-MB (CK-2) 1.56 Troponin I 0.245 0.224 Assessment & Plan - Diagnosis (1) Adenocarcinoma of right lung, stage 4 Is this a current diagnosis for this admission?: Yes Plan: Discussed with the patient oncology in [place] will consider local oncology (2) Recurrent pulmonary embolism Is this a current diagnosis for this admission?: Yes Plan: on Xarelto for almost a year with this continues clot not sure whether is old or recurrent will start the patient on the Lovenox therapy as per recommendations from the patient's oncology (3) Chronic obstructive pulmonary disease Qualifiers: COPD type: unspecified COPD Qualified Code(s): J44.9 - Chronic obstructive pulmonary disease, unspecified Is this a current diagnosis for this admission?: Yes Plan: Continues to nebulizer treatments patient is probably oxygen dependent (4) Type 2 diabetes mellitus Qualifiers: Diabetes mellitus shelter insulin use: without buttermaker helper use Is this a current diagnosis for this admission?: Yes Plan: Continues a sliding scale (5) Hypertension Qualifiers: Hypertension type: essential hypertension Qualified Code(s): I10 - Essential (primary) hypertension Is this a current diagnosis for this admission?: Yes Plan: Continues to current medications (6) Elevated troponin Is this a current diagnosis for this admission?: Yes Plan: We will consult the cardiology aspect discussed with the cardiology suggest no likelyAny acute coronary syndromes most likely due to the hypoxia related (7) Hypoxia Is this a current diagnosis for this admission?: Yes Plan: Due to the underlying pulmonary embolism with the ongoing chronic COPD currently put on oxygen therapy (8) Pericardial effusion Is this a current diagnosis for this admission?: Yes Plan: We will consult the cardiology repeat the echocardiogram today wait for the result - Time Time Spent: 50 to 70 Minutes Critical Time spent with patient: 25-34 minutes Smoking Cessation Education: over 10 minutes Medications reviewed and adjusted accordingly: Yes Anticipated discharge: Home with Homehealth Within: Other - Inpatient Certification Based on my medical assessment, after consideration of the patient's comorbidities, presenting symptoms, or acuity I expect that the services needed warrant INPATIENT care.: Yes I certify that my determination is in accordance with my understanding of Medicare's requirements for reasonable and necessary INPATIENT services [42 CFR 412.3e].: Yes Medical Necessity: Failure to Improve With Outpatient Therapy, Need Close Monitoring Due to Risk of Patient Decompensation, Need For Continuous Telemetry Monitoring, Need for Nebulizer Therapy and Monitoring of Response Post Hospital Care: D/C Hospice Physician Documentation - Plan Summary Plan Summary: Admit the patient in [facility] Extensive coordinate care to the physician in [place] and here and will Discussed with the patient and the family and the bedside Overall prognosis is poor due to the stage IV lung cancers with the pericardial involvement and recurrent PE
--- NOTE | 2019-10-02 08:35 | PDOC CONSULTATION ---
Consultation Consult Date: 10/02/19 Attending physician:: FRANTZ HOOD Provider Consulted: BERNABE GODWIN Consult reason:: Bilateral pulmonary embolism, stage IV lung cancer History of Present Illness Admission Date/PCP: 10/01/19 18:11 TIARA CHAPMAN PA-C Patient complains of: Shortness of breath, dyspnea on exertion History of Present Illness: FLO STOLL is a 69 year old female with a known history of stage IV lung cancer, she was originally diagnosed in 2018, she had a right lung mass, non- small cell lung cancer, all of her treatment has been in [place] by Dr. Jensen Ortiz, she had combination chemotherapy with carboplatin based therapy plus immunotherapy. Initially responded but then recently progressed, her last immunotherapy was earlier this year, and consolidation radiation was given to the mediastinum. This apparently was finished just about 3 to 4 weeks ago. Towards the end of the radiation she began experiencing shortness of breath and she tells me the shortness of breath that she has had, that she presented to Dr. Hood's office with has been ongoing for about 4 weeks. But it worsened greatly over the last few days. Upon presentation to her PCP, whom she had not seen for about a year, she was hypoxic with O2 sat in the 60s. She was placed on O2 via nasal cannula in the office and it went up into the 90s. But because of the shortness of breath she was sent for a CTA of the chest which showed multiple bilateral PE as well as bilateral apical scarring. Of note, she is also had pericardial involvement of the cancer, she had echocardiogram done here as well as imaging here and cardiology has seen her and does not feel that she has a significant pericardial effusion, so that is not felt to be the cause of her shortness of breath. Of note, she was on Xarelto, she apparently had a PE sometime in 2018. She tells me she has been taking the Xarelto without fail. So we discussed that the bilateral PE that we are seeing now, if new would be considered a Xarelto failure. Past Medical History Cardiac Medical History: Reports: Hyperlipidema, Hypertension, Pulmonary Embolism Denies: Coronary Artery Disease, Myocardial Infarction Pulmonary Medical History: Reports: Chronic Obstructive Pulmonary Disease (COPD) Denies: Asthma, Bronchitis, Pneumonia Neurological Medical History: Denies: Seizures Endocrine Medical History: Reports: Diabetes Mellitus Type 2 Malignancy Medical History: Reports: Lung Cancer GI Medical History: Reports: Gastroesophageal Reflux Disease Musculoskeltal Medical History: Denies: Arthritis Hematology: Denies: Anemia Past Surgical History Past Surgical History: Reports: Hysterectomy, Orthopedic Surgery - finger Denies: Pacemaker Social History Information Source: Patient Smoking Status: Former Smoker Last Time Smoked: 2016 Frequency of Alcohol Use: Occasional Hx Recreational Drug Use: No - Advance Directive Resuscitation Status: Full Code Family History Family History: Reviewed & Not Pertinent Parental Family History Reviewed: Yes Children Family History Reviewed: Yes Sibling(s) Family History Reviewed.: Yes Medication/Allergy Home Medications: Atorvastatin Calcium [Lipitor 40 mg Tablet] 40 mg PO QHS 10/01/19 Fluticasone/Umeclidin/Vilanter [Trelegy 100-62.5-25 Mcg Ellipta 14 Dose/Dpi] 1 puff IH DAILY 10/01/19 Insulin Glargine,Hum.rec.anlog [Lantus Insulin 100 Unit/1 ml 10 ml] 10 unit SQ DAILY 10/01/19 Insulin Glargine,Hum.rec.anlog [Lantus Insulin 100 Unit/1 ml 10 ml] 50 unit SQ QHS 10/01/19 Lisinopril [Prinivil 10 mg Tablet] 10 mg PO DAILY 10/01/19 Metformin HCl [Metformin HCl ER] 500 mg PO BID 10/01/19 Rivaroxaban [Xarelto] 20 mg PO DAILY 10/01/19 Allergies/Adverse Reactions: No Known Allergies Allergy (Verified 04/02/18 09:21) Review of Systems Constitutional: ABSENT: chills, fever(s), headache(s), weight gain, weight loss Eyes: ABSENT: visual disturbances Ears: ABSENT: hearing changes Cardiovascular: ABSENT: chest pain, dyspnea on exertion, edema, orthropnea, palpitations Respiratory: ABSENT: cough, hemoptysis Gastrointestinal: ABSENT: abdominal pain, constipation, diarrhea, hematemesis, hematochezia, nausea, vomiting Genitourinary: ABSENT: dysuria, hematuria Musculoskeletal: ABSENT: joint swelling Integumentary: ABSENT: rash, wounds Neurological: ABSENT: abnormal gait, abnormal speech, confusion, dizziness, focal weakness, syncope Psychiatric: ABSENT: anxiety, depression, homidical ideation, suicidal ideation Endocrine: ABSENT: cold intolerance, heat intolerance, polydipsia, polyuria Hematologic/Lymphatic: ABSENT: easy bleeding, easy bruising Physical Exam Vital Signs: Temp Pulse Resp BP Pulse Ox 97.7 F 103 H 16 147/71 H 95 10/01/19 23:31 10/02/19 07:00 10/02/19 02:30 10/01/19 23:31 10/02/19 02:30 Intake & Output 10/01/19 10/02/19 10/03/19 06:59 06:59 06:59 Weight 90.3 kg General appearance: PRESENT: no acute distress, well-developed, well-nourished Head exam: PRESENT: atraumatic, normocephalic Eye exam: PRESENT: conjunctiva pink, EOMI, PERRLA. ABSENT: scleral icterus Ear exam: PRESENT: normal external ear exam Mouth exam: PRESENT: moist, tongue midline Neck exam: ABSENT: carotid bruit, JVD, lymphadenopathy, thyromegaly Respiratory exam: PRESENT: clear to auscultation amara. ABSENT: rales, rhonchi, wheezes Cardiovascular exam: PRESENT: RRR. ABSENT: diastolic murmur, rubs, systolic murmur Pulses: PRESENT: normal dorsalis pedis pul Vascular exam: PRESENT: normal capillary refill GI/Abdominal exam: PRESENT: normal bowel sounds, soft. ABSENT: distended, guarding, mass, organolmegaly, rebound, tenderness Rectal exam: PRESENT: deferred Extremities exam: PRESENT: full ROM. ABSENT: calf tenderness, clubbing, pedal edema Neurological exam: PRESENT: alert, awake, oriented to person, oriented to place, oriented to time, oriented to situation, CN II-XII grossly intact. ABSENT: motor sensory deficit Psychiatric exam: PRESENT: appropriate affect, normal mood. ABSENT: homicidal ideation, suicidal ideation Skin exam: PRESENT: dry, intact, warm. ABSENT: cyanosis, rash Results Laboratory Results: 10/02/19 04:43 10/01/19 22:02 10/01/19 10/01/19 10/01/19 14:42 14:42 16:47 WBC Cancelled 7.8 RBC Cancelled 4.74 Hgb Cancelled 10.5 L Hct Cancelled 33.6 L MCV Cancelled 71 L MCH Cancelled 22.3 L MCHC Cancelled 31.4 L RDW Cancelled 19.2 H Plt Count Cancelled 84 L Seg Neutrophils % Cancelled 83.1 H Sodium 141.0 Potassium 3.5 L Chloride 106 Carbon Dioxide 21 L Anion Gap 14 BUN 11 Creatinine 1.02 Est GFR ( Amer) > 60 Glucose 124 H Calcium 8.9 Magnesium Total Bilirubin 0.7 AST 22 Alkaline Phosphatase 93 Total Protein 7.0 Albumin 3.5 10/01/19 10/02/19 10/02/19 22:02 04:43 04:43 WBC 7.0 RBC 4.30 Hgb 9.6 L Hct 30.2 L MCV 70 L MCH 22.2 L MCHC 31.6 L RDW 18.7 H Plt Count 65 L Seg Neutrophils % 79.3 H Sodium 140.7 Potassium 3.8 Chloride 105 Carbon Dioxide 23 Anion Gap 13 BUN 11 Creatinine 1.14 Est GFR ( Amer) 57 L Glucose 220 H Calcium 9.5 Magnesium 1.9 Total Bilirubin AST Alkaline Phosphatase Total Protein Albumin 10/01/19 10/02/19 10/02/19 14:42 04:43 04:43 Creatine Kinase 55 CK-MB (CK-2) 1.56 Troponin I 0.245 0.224 Status: Image reviewed by me Assessment & Plan - Diagnosis (1) Pulmonary emboli Qualifiers: Chronicity: acute Acute cor pulmonale presence: without acute cor pulmonale Is this a current diagnosis for this admission?: Yes Plan: No evidence of heart failure, but seems to be possibly a Xarelto failure. I will have the images pushed to [place] so that they can review it and see if the emboli are in new areas. Regardless, we need to treat her with the next line of anticoagulant which would be Lovenox or Arixtra, ultimately she will need to be discharged on Arixtra unless [place] can tell us in the next 24 to 48 hours that the PE areas are not new. In that case the shortness of breath may be related more to radiation pneumonitis. Although there was not overt evidence of that on CT imaging. (2) Adenocarcinoma of right lung, stage 4 Is this a current diagnosis for this admission?: Yes Plan: I will get full records from [place]. I offered that we can follow her here for treatment as well. - Time Time Spent: Greater than 70 Minutes - Inpatient Certification Based on my medical assessment, after consideration of the patient's comorbidities, presenting symptoms, or acuity I expect that the services needed warrant INPATIENT care.: Yes I certify that my determination is in accordance with my understanding of Medicare's requirements for reasonable and necessary INPATIENT services [42 CFR 412.3e].: Yes Medical Necessity: Need for Nebulizer Therapy and Monitoring of Response, Risk of Complication if Not Cared For in Hospital
[2019-10-02 09:07] LABS: APPEARANCE,URINE CLOUDY; BILIRUBIN,URINE NEGATIVE (NEGATIVE); COLOR,URINE YELLOW; GLUCOSE, URINE NEGATIVE (NEGATIVE); KETONES,URINE NEGATIVE (NEGATIVE); LEUKOCYTE ESTERASE,URINE NEGATIVE (NEGATIVE); NITRITE,URINE NEGATIVE (NEGATIVE); PROTEIN,URINE 100 mg/dL (NEGATIVE); URINE SPECIFIC GRAVITY 1.044
[2019-10-02] MEDS: LOSARTAN POTASSIUM 50 MG TABLET PO SCH ×2 (09:25→21:55)
[2019-10-02] MEDS: DOCUSATE SODIUM 100 MG CAPSULE PO SCH ×2 (09:25→17:11)
[2019-10-02] MEDS: ENOXAPARIN SODIUM INJ 100 MG/1 ML DISP.SYRIN SUBCUT SCH ×2 (09:26→21:54)
[2019-10-02] MEDS: FLUTICASONE/UMECLIDIN/VILANTER 100-62.5-25 MCG/DOSE IH SCH (09:28)
--- NOTE | 2019-10-02 09:51 | XCELERA REPORT ---
[address] [address] Transthoracic Echocardiogram Report Name: FLO STOLL Age: 69 yrs Gender: Female : 1950 Patient Status: Emergency Patient Location: [place] [id number]^A Study Date: 10/01/2019 08:05 PM History: Pericardial effusion Height: 63 in Weight: 194 lb BSA: 1.9 m2 Procedure: A complete two-dimensional transthoracic echocardiogram was performed (2D, M-mode, spectral and color flow Doppler). Reason For Study: PE, eval for strain Previous Evaluation: No previous studies were available. History: Smoker: previous. Other: Lung cancer Stage IV with pericardial effusion on CT Chest. Ordering Physician: ISIDRO NICOLE Performed By: Shital Rahman Interpretation Summary Left ventricular systolic function is low normal. LV EF is 50-55% There is a trace amount of mitral regurgitation There is no aortic valve stenosis There is a trace amount of aortic regurgitation There is a trace amount of tricuspid regurgitation There is no pericardial effusion. MMode/2D Measurements & Calculations RVDd: 2.9 cm LVIDd: 5.0 cm FS: 28.5 % Ao root diam: 2.8 cm IVSd: 1.2 cm LVIDs: 3.6 cm EDV(Teich): Ao root area: LVPWd: 1.1 cm 120.9 ml 6.1 cm2 ESV(Teich): 54.7 mlLA dimension: 3.3 cm EF(Teich): 54.8 % LVLd ap4: 7.3 cm SV(MOD-sp4): EDV(MOD-sp4): 35.0 ml 69.0 ml LVLs ap4: 6.1 cm ESV(MOD-sp4): 34.0 ml EF(MOD-sp4): 50.7 % Doppler Measurements & Calculations MV E max dilma: MV P1/2t max dilma: Ao V2 max: LV V1 max P.0 cm/sec 127.6 cm/sec 196.9 cm/sec 8.1 mmHg MV P1/2t: 50.1 msec Ao max PG: LV V1 max: MVA(P1/2t): 4.4 cm2 15.5 mmHg 142.5 cm/sec MV dec slope: 746.4 cm/sec2 MV dec time: 0.10 sec TR max dilma: MV P1/2t-pr_phl: 256.5 cm/sec 50.1 msec TR max P.3 mmHg Left Ventricle There is mild concentric left ventricular hypertrophy. The left ventricle is borderline dilated. Left ventricular systolic function is low normal. LV EF is 50-55%. The deceleration time of the mitral E wave is shortened, with a value < 160 msec. Doppler measurements suggest reversible restrictive left ventricular relaxation, which is associated with grade III/IV or moderate diastolic dysfunction. No regional wall motion abnormalities noted. Atria The right atrium is normal in size. The left atrial size is normal. The interatrial septum is difficult to see, but appears to be grossly normal. Mitral Valve The mitral valve leaflets appear normal. There is no evidence of stenosis, fluttering, or prolapse. There is no mitral valve stenosis. There is a trace amount of mitral regurgitation. Aortic Valve The aortic valve is trileaflet. The aortic valve is normal in structure and function. The aortic valve opens well. There is no aortic valve stenosis. There is a trace amount of aortic regurgitation. Tricuspid Valve The tricuspid valve is normal in structure and function. There is no tricuspid stenosis. There is a trace amount of tricuspid regurgitation. Doppler findings do not suggest pulmonary hypertension. Pulmonic Valve The pulmonic valve is not well visualized. Great Vessels The aortic root is normal size. The inferior vena cava appeared normal and decreased > 50% with respiration (RAP 5-10 mmHg). Effusions There is no pericardial effusion. : ISIDRO NICOLE Anil
--- NOTE | 2019-10-02 16:20 | PDOC PROGRESS REPORT ---
Subjective Progress Note for:: 10/02/19 Subjective:: In bed comfortably. No distress is voiced. No complaints of chest pain or dyspnea. Reason For Visit: HYPOXIA/PE/LUNG CANCER Physical Exam Vital Signs: Temp Pulse Resp BP Pulse Ox 97.7 F 115 H 16 147/71 H 94 10/01/19 23:31 10/02/19 14:00 10/02/19 13:47 10/01/19 23:31 10/02/19 13:47 Intake & Output 10/01/19 10/02/19 10/03/19 06:59 06:59 06:59 Intake Total 100 Output Total 200 Balance -100 Weight 90.3 kg 90.3 kg General appearance: PRESENT: no acute distress, obese, well-developed, well-nourished Head exam: PRESENT: atraumatic, normocephalic Eye exam: PRESENT: conjunctiva pink, EOMI, PERRLA. ABSENT: scleral icterus Ear exam: PRESENT: normal external ear exam Mouth exam: PRESENT: moist, tongue midline Teeth exam: PRESENT: dental caries, dental tenderness, edentulous, poor dentation, other Throat exam: PRESENT: post pharyngeal erythema, tonsillar erythema, tonsillar exudate, tonsillogmegaly, other Neck exam: ABSENT: JVD, lymphadenopathy, thyromegaly Respiratory exam: PRESENT: decreased breath sounds, prolonged expiratory phas, rhonchi Cardiovascular exam: PRESENT: RRR. ABSENT: diastolic murmur, rubs, systolic murmur Pulses: PRESENT: normal dorsalis pedis pul Vascular exam: PRESENT: normal capillary refill GI/Abdominal exam: PRESENT: soft. ABSENT: distended, guarding, mass, organo lmegaly, rebound, tenderness Rectal exam: PRESENT: deferred Extremities exam: PRESENT: full ROM. ABSENT: calf tenderness, clubbing, pedal edema Neurological exam: PRESENT: alert, awake, oriented to person, oriented to place, oriented to time, oriented to situation, CN II-XII grossly intact. ABSENT: motor sensory deficit Psychiatric exam: PRESENT: appropriate affect, normal mood. ABSENT: homicidal ideation, suicidal ideation Skin exam: PRESENT: dry, intact, warm. ABSENT: cyanosis, rash Results Laboratory Results: 10/02/19 04:43 10/01/19 22:02 10/01/19 10/01/19 10/02/19 16:47 22:02 04:43 WBC 7.8 7.0 RBC 4.74 4.30 Hgb 10.5 L 9.6 L Hct 33.6 L 30.2 L MCV 71 L 70 L MCH 22.3 L 22.2 L MCHC 31.4 L 31.6 L RDW 19.2 H 18.7 H Plt Count 84 L 65 L Seg Neutrophils % 83.1 H 79.3 H Sodium 140.7 Potassium 3.8 Chloride 105 Carbon Dioxide 23 Anion Gap 13 BUN 11 Creatinine 1.14 Est GFR ( Amer) 57 L Glucose 220 H Calcium 9.5 Magnesium Urine Color Urine Appearance Urine pH Ur Specific [place] Urine Protein Urine Glucose (UA) Urine Ketones Urine Blood Urine Nitrite Ur Leukocyte Esterase Urine WBC (Auto) Urine RBC (Auto) 10/02/19 10/02/19 04:43 08:40 WBC RBC Hgb Hct MCV MCH MCHC RDW Plt Count Seg Neutrophils % Sodium Potassium Chloride Carbon Dioxide Anion Gap BUN Creatinine Est GFR ( Amer) Glucose Calcium Magnesium 1.9 Urine Color YELLOW Urine Appearance CLOUDY Urine pH 5.0 Ur Specific [place] 1.044 Urine Protein 100 H Urine Glucose (UA) NEGATIVE Urine Ketones NEGATIVE Urine Blood NEGATIVE Urine Nitrite NEGATIVE Ur Leukocyte Esterase NEGATIVE Urine WBC (Auto) 2 Urine RBC (Auto) 1 10/01/19 10/02/19 10/02/19 14:42 04:43 04:43 Creatine Kinase 55 CK-MB (CK-2) 1.56 Troponin I 0.245 0.224 Status: Image reviewed by in - Transthoracic echocardiogram reviewed today showed low normal ejection fraction, no significant valve lesion and no pericardial effusion. Assessment & Plan - Diagnosis (1) Elevated troponin Is this a current diagnosis for this admission?: Yes Plan: Probably secondary to hypoxia. Supportive care. Unlikely to be acute coronary syndrome (2) Hypoxia Is this a current diagnosis for this admission?: Yes Plan: Possible component of radiation pneumonitis. Underlying COPD as well. Supportive care and supplemental oxygen. (3) Pulmonary emboli Qualifiers: Chronicity: acute Acute cor pulmonale presence: without acute cor pulmonale Is this a current diagnosis for this admission?: Yes Plan: Presently on enoxaparin therapy. CT scan showing pulmonary emboli bilaterally. (4) Pericardial effusion Is this a current diagnosis for this admission?: Yes Plan: Previous history of pericardial effusion, likely malignant that required pericardial window last year. This was performed in [place]. Transthoracic echocardiogram done this admission and reviewed by me shows no pericardial effusion and with low normal systolic function with ejection fraction estimated at 50 to 55%. - Notes Notes: Supportive care for pulmonary embolism. Anticoagulation to be continued per hematology oncology for pulmonary embolism.
[2019-10-02] MEDS: INSULIN GLARGINE,HUM.REC.ANLOG 1,000 UNIT/10 ML VIAL SUBCUT SCH (21:55)
[2019-10-02] MEDS: ATORVASTATIN CALCIUM 40 MG TABLET PO SCH (21:55)
[2019-10-03] MEDS: IPRATROPIUM/ALBUTEROL 0.5-2.5 MG/3 ML AMPUL NEB SCH ×4 (02:13→21:17)
[2019-10-03] MEDS: PANTOPRAZOLE SODIUM 40 MG TABLET.DR PO SCH (06:02)
[2019-10-03 07:21] LABS: ABSOLUTE EOSINOPHILS # (AUTO) 0.2 10^3/uL (0.0-0.6); ABSOLUTE LYMPHOCYTES (AUTO) 0.5 10^3/uL (0.5-4.7); ABSOLUTE MONOCYTES (AUTO) 0.6 10^3/uL (0.1-1.4); ABSOLUTE NEUT (AUTO) 4.9 10^3/uL (1.7-8.2); BASOPHILS % (AUTO) 0.5 % (0-2); EOSINOPHILS % (AUTO) 2.7 % (0-6); HEMATOCRIT 28.9 % (36.0-47.0); HEMOGLOBIN 9.2 g/dL (12.0-15.5); LYMPHOCYTES % (AUTO) 7.8 % (13-45); MEAN CORPUSCULAR HEMOGLOBIN 22.5 pg (27.0-33.4); MEAN CORPUSCULAR HGB CONC 31.8 g/dL (32.0-36.0); MEAN CORPUSCULAR VOLUME 71 fl (80-97); MONOCYTES % (AUTO) 9.2 % (3-13); RED BLOOD COUNT 4.08 10^6/uL (3.72-5.28); RED CELL DISTRIBUTION WIDTH 18.7 % (11.5-14.0); SEGMENTED NEUTROPHILS % (AUTO) 79.8 % (42-78); TOTAL CELLS COUNTED % (AUTO) 100 %; WHITE BLOOD COUNT 6.1 10^3/uL (4.0-10.5)
[2019-10-03 08:39] LABS: HYPOCHROMASIA 2+; PLATELET COUNT 89 10^3/uL (150-450); POLYCHROMASIA SLIGHT
[2019-10-03 08:40] LABS: ANISOCYTOSIS 2+; OVALOCYTES 1+; PLATELET COMMENT DECREASED; POIKILOCYTOSIS 1+
[2019-10-03] MEDS: INSULIN LISPRO 100 UNIT/ML 3 ML VIAL SUBCUT SCH ×4 (09:56→22:17)
--- NOTE | 2019-10-03 10:01 | PDOC PROGRESS REPORT ---
Subjective Progress Note for:: 10/03/19 Subjective:: Patient is currently doing much better Denied any chest pain denied any shortness of the breath Patients really wants to go home Patient is also scheduled a PET scan next week Reason For Visit: HYPOXIA/PE/LUNG CANCER Physical Exam Vital Signs: Temp Pulse Resp BP Pulse Ox 97.9 F 80 16 127/71 H 96 10/03/19 06:46 10/03/19 08:00 10/03/19 08:00 10/03/19 06:46 10/03/19 08:00 Intake & Output 10/02/19 10/03/19 10/04/19 06:59 06:59 06:59 Intake Total 400 Output Total 200 Balance 200 Weight 90.3 kg 92.7 kg General appearance: PRESENT: no acute distress, well-developed, well-nourished Head exam: PRESENT: atraumatic, normocephalic Eye exam: PRESENT: conjunctiva pink, EOMI, PERRLA. ABSENT: scleral icterus Ear exam: PRESENT: normal external ear exam Mouth exam: PRESENT: moist, tongue midline Neck exam: PRESENT: full ROM. ABSENT: carotid bruit, JVD, lymphadenopathy, thyromegaly Respiratory exam: PRESENT: clear to auscultation amara Cardiovascular exam: PRESENT: RRR. ABSENT: diastolic murmur, rubs, systolic murmur Pulses: PRESENT: normal dorsalis pedis pul, +2 pedal pulses bilateral Vascular exam: PRESENT: normal capillary refill GI/Abdominal exam: PRESENT: normal bowel sounds, soft. ABSENT: distended, guarding, mass, organolmegaly, rebound, tenderness Rectal exam: PRESENT: deferred Musculoskeletal exam: PRESENT: ambulatory Neurological exam: PRESENT: alert, awake, oriented to person, oriented to place, oriented to time, oriented to situation, CN II-XII grossly intact. ABSENT: motor sensory deficit Psychiatric exam: PRESENT: appropriate affect, normal mood. ABSENT: homicidal ideation, suicidal ideation Skin exam: PRESENT: dry, intact, warm. ABSENT: cyanosis, rash Results Laboratory Results: 10/03/19 06:19 10/01/19 22:02 10/03/19 06:19 WBC 6.1 RBC 4.08 Hgb 9.2 L Hct 28.9 L MCV 71 L MCH 22.5 L MCHC 31.8 L RDW 18.7 H Plt Count 89 L Seg Neutrophils % 79.8 H 10/01/19 10/02/19 10/02/19 14:42 04:43 04:43 Creatine Kinase 55 CK-MB (CK-2) 1.56 Troponin I 0.245 0.224 Assessment & Plan - Diagnosis (1) Adenocarcinoma of right lung, stage 4 Is this a current diagnosis for this admission?: Yes (2) Recurrent pulmonary embolism Is this a current diagnosis for this admission?: Yes (3) Chronic obstructive pulmonary disease Qualifiers: COPD type: unspecified COPD Qualified Code(s): J44.9 - Chronic obstructive pulmonary disease, unspecified Is this a current diagnosis for this admission?: Yes (4) Type 2 diabetes mellitus Qualifiers: Diabetes mellitus director of outreach insulin use: without director of outreach use Is this a current diagnosis for this admission?: Yes (5) Hypertension Qualifiers: Hypertension type: essential hypertension Qualified Code(s): I10 - Essential (primary) hypertension Is this a current diagnosis for this admission?: Yes (6) Elevated troponin Is this a current diagnosis for this admission?: Yes (7) Hypoxia Is this a current diagnosis for this admission?: Yes (8) Pericardial effusion Is this a current diagnosis for this admission?: Yes - Time Time Spent with patient: 25-34 minutes Level of Care: IMCU Medications reviewed and adjusted accordingly: Yes Anticipated discharge: Home with Homehealth Within: Other - Plan Summary Plan Summary: Patient is doing much better we will let the patient's walk with the oxygen and see how much oxygen she needed on the resting conditions patient is required 2 L nasal cannula Discussed with the patient and the family on the bedside that the will wait for the oncology to come and decide about the which injectable therapy patients can go Patient is comfortable for injection therapy Patient is really do not want to stay in the hospital anymore 1 day patient understand the risk and benefit We will walk the patient's Patient already oxygen delivered at home We will consult the corporate event planner Patient have a follow-up appointment with oncology on Saturday We will continue to monitor the patient's
[2019-10-03] MEDS: ENOXAPARIN SODIUM INJ 100 MG/1 ML DISP.SYRIN SUBCUT SCH ×2 (10:18→22:17)
[2019-10-03] MEDS: DOCUSATE SODIUM 100 MG CAPSULE PO SCH ×2 (10:19→17:28)
[2019-10-03] MEDS: LOSARTAN POTASSIUM 50 MG TABLET PO SCH ×2 (10:19→22:15)
[2019-10-03] MEDS: FLUTICASONE/UMECLIDIN/VILANTER 100-62.5-25 MCG/DOSE IH SCH (10:20)
--- NOTE | 2019-10-03 11:22 | PDOC PROGRESS REPORT ---
Subjective Progress Note for:: 10/03/19 Subjective:: Patient really wanted to go home today but when we did home O2 eval we found that her O2 on 2 L nasal cannula still was 77%, upon increasing it to 3 L she did go up above 90%. But this indicates she is still quite hypoxic. I had a long discussion yesterday with her oncologist in [place], Dr. Ortiz. He gave more history but notes that he had radiology review the CT imaging that we did and it appears that there are new areas of thrombosis in the lung. Yoseph portillo with worsening PE on Xarelto. Therefore she has to be on either Lovenox or Arixtra for life now. In addition because the hypoxia also started at the tail end of radiation therapy she may have some radiation-induced pneumonitis. Therefore we discussed putting her on IV steroids for 24 to 48 hours to see how she does. We are going to discharge her with Arixtra, we gave the prescription to the and he notes that [facility] will not be able to get the drug in until Saturday. Reason For Visit: HYPOXIA/PE/LUNG CANCER Physical Exam Vital Signs: Temp Pulse Resp BP Pulse Ox 97.9 F 80 16 127/71 H 96 10/03/19 06:46 10/03/19 08:00 10/03/19 08:00 10/03/19 06:46 10/03/19 08:00 Intake & Output 10/02/19 10/03/19 10/04/19 06:59 06:59 06:59 Intake Total 400 Output Total 200 Balance 200 Weight 90.3 kg 92.7 kg General appearance: PRESENT: no acute distress, well-developed, well-nourished Head exam: PRESENT: atraumatic, normocephalic Eye exam: PRESENT: conjunctiva pink, EOMI, PERRLA. ABSENT: scleral icterus Ear exam: PRESENT: normal external ear exam Mouth exam: PRESENT: moist, tongue midline Neck exam: ABSENT: carotid bruit, JVD, lymphadenopathy, thyromegaly Respiratory exam: PRESENT: clear to auscultation amara. ABSENT: rales, rhonchi, wheezes Cardiovascular exam: PRESENT: RRR. ABSENT: diastolic murmur, rubs, systolic murmur Pulses: PRESENT: normal dorsalis pedis pul Vascular exam: PRESENT: normal capillary refill GI/Abdominal exam: PRESENT: normal bowel sounds, soft. ABSENT: distended, guarding, mass, organolmegaly, rebound, tenderness Rectal exam: PRESENT: deferred Extremities exam: PRESENT: full ROM. ABSENT: calf tenderness, clubbing, pedal edema Neurological exam: PRESENT: alert, awake, oriented to person, oriented to place, oriented to time, oriented to situation, CN II-XII grossly intact. ABSENT: motor sensory deficit Psychiatric exam: PRESENT: appropriate affect, normal mood. ABSENT: homicidal ideation, suicidal ideation Skin exam: PRESENT: dry, intact, warm. ABSENT: cyanosis, rash Results Laboratory Results: 10/03/19 06:19 10/01/19 22:02 10/03/19 06:19 WBC 6.1 RBC 4.08 Hgb 9.2 L Hct 28.9 L MCV 71 L MCH 22.5 L MCHC 31.8 L RDW 18.7 H Plt Count 89 L Seg Neutrophils % 79.8 H 10/01/19 10/02/19 10/02/19 14:42 04:43 04:43 Creatine Kinase 55 CK-MB (CK-2) 1.56 Troponin I 0.245 0.224 Assessment & Plan - Diagnosis (1) Pulmonary emboli Qualifiers: Chronicity: acute Acute cor pulmonale presence: without acute cor pulmonale Is this a current diagnosis for this admission?: Yes Plan: Acute, worsened on Xarelto so Xarelto failure, will need Arixtra for life. (2) Adenocarcinoma of right lung, stage 4 Is this a current diagnosis for this admission?: Yes Plan: She was recently completed radiation plus Cytoxan. This is probably the cause of her cytopenias as well. 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 Thereafter she will need 3 to 4-week taper. - Time Time Spent with patient: 35 or more minutes - Inpatient Certification Based on my medical assessment, after consideration of the patient's comorbidities, presenting symptoms, or acuity I expect that the services needed warrant INPATIENT care.: Yes I certify that my determination is in accordance with my understanding of Medicare's requirements for reasonable and necessary INPATIENT services [42 CFR 412.3e].: Yes Medical Necessity: Risk of Complication if Not Cared For in Hospital
--- NOTE | 2019-10-03 12:09 | PDOC PROGRESS REPORT ---
Subjective Progress Note for:: 10/03/19 Subjective:: In bed comfortably. No distress is voiced. No complaints of chest pain or dyspnea. Reason For Visit: HYPOXIA/PE/LUNG CANCER Physical Exam Vital Signs: Temp Pulse Resp BP Pulse Ox 98.1 F 102 H 20 146/66 H 96 10/03/19 11:06 10/03/19 11:06 10/03/19 11:06 10/03/19 11:06 10/03/19 11:06 Intake & Output 10/02/19 10/03/19 10/04/19 06:59 06:59 06:59 Intake Total 400 Output Total 200 Balance 200 Weight 90.3 kg 92.7 kg General appearance: PRESENT: no acute distress, obese Head exam: PRESENT: atraumatic, normocephalic Eye exam: PRESENT: conjunctiva pink, EOMI Mouth exam: PRESENT: dry mucosa Neck exam: PRESENT: JVD Respiratory exam: PRESENT: crackles, decreased breath sounds, symmetrical Cardiovascular exam: PRESENT: RRR, +S1, +S2 Pulses: PRESENT: normal radial pulses GI/Abdominal exam: PRESENT: soft Rectal exam: PRESENT: deferred Neurological exam: PRESENT: alert, awake, oriented to person, oriented to place, oriented to time Psychiatric exam: PRESENT: appropriate affect Skin exam: PRESENT: normal color Results Laboratory Results: 10/03/19 06:19 10/01/19 22:02 10/03/19 06:19 WBC 6.1 RBC 4.08 Hgb 9.2 L Hct 28.9 L MCV 71 L MCH 22.5 L MCHC 31.8 L RDW 18.7 H Plt Count 89 L Seg Neutrophils % 79.8 H 10/01/19 10/02/19 10/02/19 14:42 04:43 04:43 Creatine Kinase 55 CK-MB (CK-2) 1.56 Troponin I 0.245 0.224 Assessment & Plan - Diagnosis (1) Elevated troponin Is this a current diagnosis for this admission?: Yes Plan: Probably secondary to hypoxia. Supportive care. Unlikely to be acute coronary syndrome (2) Pulmonary emboli Qualifiers: Chronicity: acute Acute cor pulmonale presence: without acute cor pulmonale Is this a current diagnosis for this admission?: Yes Plan: Presently on enoxaparin therapy. CT scan showing pulmonary emboli bilaterally. It is thought that patient had new pulmonary emboli while on systemic anticoagulation with rivaroxaban. (3) Pericardial effusion Is this a current diagnosis for this admission?: Yes Plan: Previous history of pericardial effusion, likely malignant that required pericardial window last year. This was performed in [place]. Transthoracic echocardiogram done this admission and reviewed by me shows no pericardial effusion and with low normal systolic function with ejection fraction estimated at 50 to 55%. - Notes Notes: No chest pain. Mildly elevated troponin in the setting of hypoxia and pulmonary embolism. Supportive care for pulmonary embolism Transthoracic echocardiogram shows low normal ejection fraction with no pericardial effusion.
[2019-10-03] MEDS: ATORVASTATIN CALCIUM 40 MG TABLET PO SCH (22:15)
[2019-10-03] MEDS: INSULIN GLARGINE,HUM.REC.ANLOG 1,000 UNIT/10 ML VIAL SUBCUT SCH (22:16)
[2019-10-04] MEDS: IPRATROPIUM/ALBUTEROL 0.5-2.5 MG/3 ML AMPUL NEB SCH ×4 (01:47→20:17)
[2019-10-04 05:39] LABS: ABSOLUTE EOSINOPHILS # (AUTO) 0.2 10^3/uL (0.0-0.6); ABSOLUTE LYMPHOCYTES (AUTO) 0.5 10^3/uL (0.5-4.7); ABSOLUTE MONOCYTES (AUTO) 0.6 10^3/uL (0.1-1.4); ABSOLUTE NEUT (AUTO) 3.9 10^3/uL (1.7-8.2); BASOPHILS % (AUTO) 0.4 % (0-2); EOSINOPHILS % (AUTO) 3.3 % (0-6); HEMOGLOBIN 8.6 g/dL (12.0-15.5); LYMPHOCYTES % (AUTO) 9.9 % (13-45); MEAN CORPUSCULAR HEMOGLOBIN 22.7 pg (27.0-33.4); MEAN CORPUSCULAR HGB CONC 31.7 g/dL (32.0-36.0); MEAN CORPUSCULAR VOLUME 71 fl (80-97); MONOCYTES % (AUTO) 11.6 % (3-13); PLATELET COUNT 111 10^3/uL (150-450); RED BLOOD COUNT 3.78 10^6/uL (3.72-5.28); RED CELL DISTRIBUTION WIDTH 19.2 % (11.5-14.0); SEGMENTED NEUTROPHILS % (AUTO) 74.8 % (42-78); TOTAL CELLS COUNTED % (AUTO) 100 %; WHITE BLOOD COUNT 5.2 10^3/uL (4.0-10.5)
[2019-10-04] MEDS: PANTOPRAZOLE SODIUM 40 MG TABLET.DR PO SCH (06:51)
[2019-10-04] MEDS: INSULIN LISPRO 100 UNIT/ML 3 ML VIAL SUBCUT SCH ×4 (09:05→22:12)
[2019-10-04] MEDS: DOCUSATE SODIUM 100 MG CAPSULE PO SCH ×2 (09:06→18:08)
[2019-10-04] MEDS: ENOXAPARIN SODIUM INJ 100 MG/1 ML DISP.SYRIN SUBCUT SCH ×2 (09:06→22:01)
[2019-10-04] MEDS: LOSARTAN POTASSIUM 50 MG TABLET PO SCH ×2 (09:06→22:02)
[2019-10-04] MEDS: FLUTICASONE/UMECLIDIN/VILANTER 100-62.5-25 MCG/DOSE IH SCH (09:12)
--- NOTE | 2019-10-04 10:58 | PDOC PROGRESS REPORT ---
Subjective Progress Note for:: 10/04/19 Subjective:: Patient is feeling much better Patient's cough is also improving Patient did not receive the steroid yesterday Patient's denied any chest pain denied any shortness of the breath Reason For Visit: HYPOXIA/PE/LUNG CANCER Physical Exam Vital Signs: Temp Pulse Resp BP Pulse Ox 97.1 F 85 16 132/77 H 95 10/04/19 07:45 10/04/19 07:55 10/04/19 07:55 10/04/19 07:45 10/04/19 07:55 Intake & Output 10/03/19 10/04/19 10/05/19 06:59 06:59 06:59 Intake Total 400 942 Output Total 200 0 Balance 200 942 Weight 92.7 kg 92.5 kg General appearance: PRESENT: no acute distress, well-developed, well-nourished Head exam: PRESENT: atraumatic, normocephalic Eye exam: PRESENT: conjunctiva pink, EOMI, PERRLA. ABSENT: scleral icterus Ear exam: PRESENT: normal external ear exam Mouth exam: PRESENT: moist, tongue midline Neck exam: PRESENT: full ROM. ABSENT: carotid bruit, JVD, lymphadenopathy, thyromegaly Respiratory exam: PRESENT: clear to auscultation amara Cardiovascular exam: PRESENT: RRR. ABSENT: diastolic murmur, rubs, systolic murmur Pulses: PRESENT: normal dorsalis pedis pul, +2 pedal pulses bilateral Vascular exam: PRESENT: normal capillary refill GI/Abdominal exam: PRESENT: normal bowel sounds, soft. ABSENT: distended, guarding, mass, organolmegaly, rebound, tenderness Rectal exam: PRESENT: deferred Musculoskeletal exam: PRESENT: ambulatory Neurological exam: PRESENT: alert, awake, oriented to person, oriented to place, oriented to time, oriented to situation, CN II-XII grossly intact. ABSENT: motor sensory deficit Psychiatric exam: PRESENT: appropriate affect, normal mood. ABSENT: homicidal ideation, suicidal ideation Skin exam: PRESENT: dry, intact, warm. ABSENT: cyanosis, rash Results Laboratory Results: 10/04/19 04:55 10/01/19 22:02 10/04/19 04:55 WBC 5.2 RBC 3.78 Hgb 8.6 L Hct 27.0 L MCV 71 L MCH 22.7 L MCHC 31.7 L RDW 19.2 H Plt Count 111 L Seg Neutrophils % 74.8 10/01/19 10/02/19 10/02/19 14:42 04:43 04:43 Creatine Kinase 55 CK-MB (CK-2) 1.56 Troponin I 0.245 0.224 Assessment & Plan - Diagnosis (1) Adenocarcinoma of right lung, stage 4 Is this a current diagnosis for this admission?: Yes (2) Recurrent pulmonary embolism Is this a current diagnosis for this admission?: Yes (3) Chronic obstructive pulmonary disease Qualifiers: COPD type: unspecified COPD Qualified Code(s): J44.9 - Chronic obstructive pulmonary disease, unspecified Is this a current diagnosis for this admission?: Yes (4) Type 2 diabetes mellitus Qualifiers: Diabetes mellitus fci insulin use: without rat exterminator use Is this a current diagnosis for this admission?: Yes (5) Hypertension Qualifiers: Hypertension type: essential hypertension Qualified Code(s): I10 - Essential (primary) hypertension Is this a current diagnosis for this admission?: Yes (6) Elevated troponin Is this a current diagnosis for this admission?: Yes (7) Hypoxia Is this a current diagnosis for this admission?: Yes (8) Pericardial effusion Is this a current diagnosis for this admission?: Yes (9) Pneumonitis Is this a current diagnosis for this admission?: Yes Plan: Start the steroid today the first dose now - Time Time Spent with patient: 15-24 minutes Level of Care: IMCU Medications reviewed and adjusted accordingly: Yes Anticipated discharge: Home Within: within 24 hours - Plan Summary Plan Summary: Plan to discharge home tomorrow with the p.o. steroids
--- NOTE | 2019-10-04 11:32 | PDOC PROGRESS REPORT ---
Subjective Progress Note for:: 10/04/19 Subjective:: In bed comfortably. No distress is voiced. No complaints of chest pain or dyspnea. Reason For Visit: HYPOXIA/PE/LUNG CANCER Physical Exam Vital Signs: Temp Pulse Resp BP Pulse Ox 97.1 F 85 16 132/77 H 95 10/04/19 07:45 10/04/19 07:55 10/04/19 07:55 10/04/19 07:45 10/04/19 07:55 Intake & Output 10/03/19 10/04/19 10/05/19 06:59 06:59 06:59 Intake Total 400 942 Output Total 200 0 Balance 200 942 Weight 92.7 kg 92.5 kg General appearance: PRESENT: morbidly obese Head exam: PRESENT: atraumatic, normocephalic Eye exam: PRESENT: EOMI Mouth exam: PRESENT: moist Respiratory exam: PRESENT: crackles, decreased breath sounds, prolonged expiratory phas, unlabored Cardiovascular exam: PRESENT: RRR, +S1, +S2 GI/Abdominal exam: PRESENT: soft Rectal exam: PRESENT: deferred Neurological exam: PRESENT: alert, awake, oriented to person, oriented to place, oriented to time, oriented to situation Skin exam: PRESENT: dry, normal color Results Laboratory Results: 10/04/19 04:55 10/01/19 22:02 10/04/19 04:55 WBC 5.2 RBC 3.78 Hgb 8.6 L Hct 27.0 L MCV 71 L MCH 22.7 L MCHC 31.7 L RDW 19.2 H Plt Count 111 L Seg Neutrophils % 74.8 10/01/19 10/02/19 10/02/19 14:42 04:43 04:43 Creatine Kinase 55 CK-MB (CK-2) 1.56 Troponin I 0.245 0.224 Assessment & Plan - Diagnosis (1) Elevated troponin Is this a current diagnosis for this admission?: Yes Plan: Probably secondary to hypoxia. Supportive care. Unlikely to be acute coronary syndrome (2) Pulmonary emboli Qualifiers: Chronicity: acute Acute cor pulmonale presence: without acute cor pulmonale Is this a current diagnosis for this admission?: Yes Plan: Presently on enoxaparin therapy. CT scan showing pulmonary emboli bilaterally. It is thought that patient had new pulmonary emboli while on systemic anticoagulation with rivaroxaban. Plan is to use injectable systemic anticoagulation. Follow-up in [place] for further evaluation (3) Pericardial effusion Is this a current diagnosis for this admission?: Yes Plan: Previous history of pericardial effusion, likely malignant that required pericardial window last year. This was performed in [place]. Transthoracic echocardiogram done this admission and reviewed by me shows no pericardial effusion and with low normal systolic function with ejection fraction estimated at 50 to 55%. - Notes Notes: From a cardiac standpoint seems to be doing well. Respiratory symptoms are also much improved. She has been started on Solu-Medrol
[2019-10-04] MEDS: INSULIN GLARGINE,HUM.REC.ANLOG 1,000 UNIT/10 ML VIAL SUBCUT SCH ×2 (12:01→22:02)
[2019-10-04] MEDS: METHYLPREDNISOLONE INJ 40 MG/1 ML SDV IV SCH ×2 (12:01→22:02)
[2019-10-04] MEDS ORDERED: METHYLPREDNISOLONE INJ 40 MG/1 ML SDV IV SCH (22:00)
[2019-10-04] MEDS: ATORVASTATIN CALCIUM 40 MG TABLET PO SCH (22:02)
[2019-10-05] MEDS: IPRATROPIUM/ALBUTEROL 0.5-2.5 MG/3 ML AMPUL NEB SCH ×2 (02:14→07:56)
[2019-10-05 06:14] LABS: HEMATOCRIT 28.5 % (36.0-47.0); MEAN CORPUSCULAR HEMOGLOBIN 22.5 pg (27.0-33.4); MEAN CORPUSCULAR HGB CONC 31.5 g/dL (32.0-36.0); MEAN CORPUSCULAR VOLUME 72 fl (80-97); PLATELET COUNT 167 10^3/uL (150-450); RED BLOOD COUNT 3.98 10^6/uL (3.72-5.28); RED CELL DISTRIBUTION WIDTH 19.5 % (11.5-14.0); WHITE BLOOD COUNT 6.3 10^3/uL (4.0-10.5)
[2019-10-05] MEDS: PANTOPRAZOLE SODIUM 40 MG TABLET.DR PO SCH (06:27)
[2019-10-05 06:41] LABS: ANION GAP 7 (5-19); BLOOD UREA NITROGEN 16 mg/dL (7-20); CALCIUM 8.8 mg/dL (8.4-10.2); CARBON DIOXIDE 24 mmol/L (22-30); CHLORIDE 108 mmol/L (98-107); GLUCOSE 151 mg/dL (75-110); POTASSIUM 5.1 mmol/L (3.6-5.0)
[2019-10-05 06:50] LABS: ABSOLUTE LYMPHOCYTES# (MANUAL) 0.3 10^3/uL (0.5-4.7); ABSOLUTE MONOCYTES # (MANUAL) 0.2 10^3/uL (0.1-1.4); BASOPHILS % (MANUAL) 0 % (0-2); EOSINOPHILS % (MANUAL) 0 % (0-6); LYMPHOCYTES % (MANUAL) 4 % (13-45); MONOCYTES % (MANUAL) 3 % (3-13); SEGMENTED NEUTROPHILS % (MAN) 93 % (42-78); TOTAL CELLS COUNTED 100
[2019-10-05 06:53] LABS: POLYCHROMASIA SLIGHT
[2019-10-05 06:54] LABS: ANISOCYTOSIS 2+; OVALOCYTES 1+; PLATELET COMMENT ADEQUATE; POIKILOCYTOSIS 1+; SCHISTOCYTES SLIGHT
[2019-10-05] MEDS: INSULIN LISPRO 100 UNIT/ML 3 ML VIAL SUBCUT SCH (08:02)
[2019-10-05] MEDS: INSULIN GLARGINE,HUM.REC.ANLOG 1,000 UNIT/10 ML VIAL SUBCUT SCH (08:06)
[2019-10-05 08:26] VITALS: BP 145/90
--- NOTE | 2019-10-05 08:26 | PDOC DISCHARGE SUMMARY ---
Impression - Admit/DC Date/PCP Admission Date/Primary Care Provider: 10/01/19 18:11 TIARA CHAPMAN PA-C Discharge Date: 10/05/19 - Discharge Diagnosis (1) Adenocarcinoma of right lung, stage 4 Is this a current diagnosis for this admission?: Yes (2) Recurrent pulmonary embolism Is this a current diagnosis for this admission?: Yes (3) Chronic obstructive pulmonary disease Is this a current diagnosis for this admission?: Yes (4) Type 2 diabetes mellitus Is this a current diagnosis for this admission?: Yes (5) Hypertension Is this a current diagnosis for this admission?: Yes (6) Elevated troponin Is this a current diagnosis for this admission?: Yes (7) Hypoxia Is this a current diagnosis for this admission?: Yes (8) Pericardial effusion Is this a current diagnosis for this admission?: Yes (9) Pneumonitis Is this a current diagnosis for this admission?: Yes - Additional Information Resuscitation Status: Full Code Discharge Diet: Diabetic Discharge Activity: Activity As Tolerated Referrals: TIARA CHAPMAN PA-C [Primary Care Provider] - Follow up as needed Prescriptions: Fondaparinux Sodium [Arixtra Inj 7.5 mg/0.6 ml Disp. Syrin] 7.5 mg SUBCUT DAILY #30 disp.syrin Prednisone 10 mg PO ASDIR PRN #100 tablet PRN Reason: Home Medications: Atorvastatin Calcium [Lipitor 40 mg Tablet] 40 mg PO QHS 10/01/19 Fluticasone/Umeclidin/Vilanter [Trelegy 100-62.5-25 Mcg Ellipta 14 Dose/Dpi] 1 puff IH DAILY 10/01/19 Insulin Glargine,Hum.rec.anlog [Lantus Insulin 100 Unit/1 ml 10 ml] 10 unit SQ DAILY 10/01/19 Insulin Glargine,Hum.rec.anlog [Lantus Insulin 100 Unit/1 ml 10 ml] 50 unit SQ QHS 10/01/19 Lisinopril [Prinivil 10 mg Tablet] 10 mg PO DAILY 10/01/19 Metformin HCl [Metformin HCl ER] 500 mg PO BID 10/01/19 Fondaparinux Sodium [Arixtra Inj 7.5 mg/0.6 ml Disp. Syrin] 7.5 mg SUBCUT DAILY #30 disp.syrin 10/03/19 Prednisone 10 mg PO ASDIR PRN #100 tablet 10/05/19 History of Present Illiness History of Present Illness: FLO STOLL is a 69 year old female Is a 69-year-old female's with a stage IV lung cancers involvement of the pericardium with a history of the pericardial effusions status post pericardial window at [facility] last year patient is currently see thoracic oncology at [facility] finished the chemo And immunotherapy and a recurrent of the disease with the last PET scan was done in cial some positive lymph node with negative MRI and patient was started on a radiation's treatments Patient also have a history of the pulmonary embolisms as per her record last year and currently taking the Xarelto but unfortunately patient unable about the blood clot No significant history of the COPD and oxygen dependent but currently not taking the oxygen at home's for since last couple of months came to my office yesterday with a complaining of a short of breath after long time from the last visit and patient was complaining some mild cough in my office patient O2 sat her resting condition was 80%'s and patient's walk to dropped up to 64 patient was put on at 2 L nasal cannula to go up to 90 to 94%'s At this point patient was sent to the CT angiogram because of the hypoxia as outpatients suggesting that multiple arteries on pulmonary have a some PE and patient was sent to the emergency department In the ER patient troponin was elevated but other than that no other acute findings patient is obviously taking the Xarelto with this blood clot not sure whether is old or new patient was put on the Lovenox and consult the local oncology Discussed with the patient's oncology Dr. whitlock At [facility] myself and suggest that if the patient wants to come will transfer otherwise treat with over there with the injection therapy and repeat the echocardiogram Patients do not want to go to the [facility] wants to continue to treatment here and start the patient on a Lovenox injection therapy consult the cardiology for further evaluation about elevated troponin and a history of the pericardial involvement the lung cancer Patients after putting the oxygen feeling much better denied any chest pain no short of breath some mild cough but other than that no other symptoms Very extensive discussions with the patient's and the family and the bedside regarding the all the test reports with the stage IV cancers recurrent clots and elevated troponin and patient understand very well Hospital Course Hospital Course: Is a 69-year-old female's with a stage IV lung cancers recently receiving radiation treatments status post chemo immunotherapy involvement of the pericardium's history of the pericardial effusions came to the office with a complaining of shortness of the breath and hypoxia Patient's at this point sent to the outpatient CT angiograms with source the multiple PE and patient was sent to the emergency department and admitting in the hospital for the failure to the Xarelto and pneumonitis on the lung due to the radiations The consult the oncology and coordinate care with oncology at the patient's [facility] oncology and suggest to put on a steroid treatments and oxygen Patient also seen by the cardiology and echocardiogram done no sign of pericardial effusions Patient's otherwise remained stable patient's failure to Xarelto required atraxia 7.5 mg subcu daily instead of the Xarelto Patient is also have a scheduled PET scan at [facility] tomorrow Patient's other blood work is remained stable Is requiring 3 L nasal cannula oxygen's and patient's O2 sat is about 90%'s without oxygen's patient O2 sats under resting conditions 80 and walking patients go around 70 Very extensive discussions with the patient and the family and the bedside regarding the patient's all the test reports and follow-up Physical Exam Vital Signs: Temp Pulse Resp BP Pulse Ox 97.8 F 89 16 139/71 H 96 10/05/19 03:50 10/05/19 07:58 10/05/19 07:58 10/05/19 03:50 10/05/19 07:58 Intake & Output 10/04/19 10/05/19 10/06/19 06:59 06:59 06:59 Intake Total 942 1447 Output Total 0 Balance 942 1447 Weight 92.5 kg 92 kg General appearance: PRESENT: no acute distress, well-developed, well-nourished Head exam: PRESENT: atraumatic, normocephalic Eye exam: PRESENT: conjunctiva pink, EOMI, PERRLA. ABSENT: scleral icterus Ear exam: PRESENT: normal external ear exam Mouth exam: PRESENT: moist, tongue midline Neck exam: ABSENT: carotid bruit, JVD, lymphadenopathy, thyromegaly Respiratory exam: PRESENT: clear to auscultation amara. ABSENT: rales, rhonchi, wheezes Cardiovascular exam: PRESENT: RRR. ABSENT: diastolic murmur, rubs, systolic murmur Pulses: PRESENT: normal dorsalis pedis pul Vascular exam: PRESENT: normal capillary refill GI/Abdominal exam: PRESENT: normal bowel sounds, soft. ABSENT: distended, guarding, mass, organolmegaly, rebound, tenderness Rectal exam: PRESENT: deferred Extremities exam: PRESENT: full ROM. ABSENT: calf tenderness, clubbing, pedal edema Neurological exam: PRESENT: alert, awake, oriented to person, oriented to place, oriented to time, oriented to situation, CN II-XII grossly intact. ABSENT: motor sensory deficit Psychiatric exam: PRESENT: appropriate affect, normal mood. ABSENT: homicidal ideation, suicidal ideation Skin exam: PRESENT: dry, intact, warm. ABSENT: cyanosis, rash Results Laboratory Results: WBC 6.3 10^3/uL (4.0-10.5) 10/05/19 04:53 RBC 3.98 10^6/uL (3.72-5.28) 10/05/19 04:53 Hgb 9.0 g/dL (12.0-15.5) L 10/05/19 04:53 Hct 28.5 % (36.0-47.0) L 10/05/19 04:53 MCV 72 fl (80-97) L 10/05/19 04:53 MCH 22.5 pg (27.0-33.4) L 10/05/19 04:53 MCHC 31.5 g/dL (32.0-36.0) L 10/05/19 04:53 RDW 19.5 % (11.5-14.0) H 10/05/19 04:53 Plt Count 167 10^3/uL (150-450) 10/05/19 04:53 Lymph % (Auto) Not Reportable 10/05/19 04:53 [place] % (Auto) Not Reportable 10/05/19 04:53 Eos % (Auto) Not Reportable 10/05/19 04:53 Baso % (Auto) Not Reportable 10/05/19 04:53 Absolute Neuts (auto) Not Reportable 10/05/19 04:53 Absolute Lymphs (auto) Not Reportable 10/05/19 04:53 Absolute Monos (auto) Not Reportable 10/05/19 04:53 Absolute Eos (auto) Not Reportable 10/05/19 04:53 Absolute Basos (auto) Not Reportable 10/05/19 04:53 Total Counted 100 10/05/19 04:53 Seg Neutrophils % Not Reportable 10/05/19 04:53 Seg Neuts % (Manual) 93 % (42-78) H 10/05/19 04:53 Lymphocytes % (Manual) 4 % (13-45) L 10/05/19 04:53 Monocytes % (Manual) 3 % (3-13) 10/05/19 04:53 Eosinophils % (Manual) 0 % (0-6) 10/05/19 04:53 Basophils % (Manual) 0 % (0-2) 10/05/19 04:53 Abs Neuts (Manual) 5.9 10^3/uL (1.7-8.2) 10/05/19 04:53 Abs Lymphs (Manual) 0.3 10^3/uL (0.5-4.7) L 10/05/19 04:53 Abs Monocytes (Manual) 0.2 10^3/uL (0.1-1.4) 10/05/19 04:53 Absolute Eos (Manual) 0.0 10^3/uL (0.0-0.6) 10/05/19 04:53 Abs Basophils (Manual) 0.0 10^3/uL (0.0-0.2) 10/05/19 04:53 Platelet Estimate Cancelled 10/01/19 14:42 Platelet Comment ADEQUATE 10/05/19 04:53 Polychromasia SLIGHT 10/05/19 04:53 Hypochromasia 2+ 10/03/19 06:19 Poikilocytosis 1+ 10/05/19 04:53 Anisocytosis 2+ 10/05/19 04:53 Microcytosis 2+ 10/03/19 06:19 Ovalocytes 1+ 10/05/19 04:53 Schistocytes SLIGHT 10/05/19 04:53 PT 16.4 SEC (11.4-15.4) H 10/01/19 14:42 INR 1.31 10/01/19 14:42 APTT 33.2 SEC (23.5-35.8) 10/01/19 14:42 Sodium 138.6 mmol/L (137-145) 10/05/19 04:53 Potassium 5.1 mmol/L (3.6-5.0) H 10/05/19 04:53 Chloride 108 mmol/L (98-107) H 10/05/19 04:53 Carbon Dioxide 24 mmol/L (22-30) 10/05/19 04:53 Anion Gap 7 (5-19) 10/05/19 04:53 BUN 16 mg/dL (7-20) 10/05/19 04:53 Creatinine 1.22 mg/dL (0.52-1.25) 10/05/19 04:53 Est GFR ( Amer) 53 (>60) L 10/05/19 04:53 Est GFR (MDRD) Non-Af 44 (>60) L 10/05/19 04:53 Glucose 151 mg/dL (75-110) H 10/05/19 04:53 POC Glucose 140 mg/dL (70-110) H 10/05/19 07:58 Calcium 8.8 mg/dL (8.4-10.2) 10/05/19 04:53 Magnesium 1.9 mg/dL (1.6-2.3) 10/02/19 04:43 Total Bilirubin 0.7 mg/dL (0.2-1.3) 10/01/19 14:42 Direct Bilirubin 0.2 mg/dL (0.0-0.4) 10/01/19 14:42 Neonat Total Bilirubin Not Reportable 10/01/19 14:42 Neonat Direct Bilirubin Not Reportable 10/01/19 14:42 Neonat Indirect Bili Not Reportable 10/01/19 14:42 AST 22 U/L (14-36) 10/01/19 14:42 ALT 18 U/L (<35) 10/01/19 14:42 Alkaline Phosphatase 93 U/L (38-126) 10/01/19 14:42 Creatine Kinase 55 U/L (30-135) 10/02/19 04:43 CK-MB (CK-2) 1.56 ng/mL (<4.55) 10/02/19 04:43 Troponin I 0.224 ng/mL 10/02/19 04:43 Total Protein 7.0 g/dL (6.3-8.2) 10/01/19 14:42 Albumin 3.5 g/dL (3.5-5.0) 10/01/19 14:42 Urine Color YELLOW 10/02/19 08:40 Urine Appearance CLOUDY 10/02/19 08:40 Urine pH 5.0 (5.0-9.0) 10/02/19 08:40 Ur Specific [place] 1.044 10/02/19 08:40 Urine Protein 100 mg/dL (NEGATIVE) H 10/02/19 08:40 Urine Glucose (UA) NEGATIVE mg/dL (NEGATIVE) 10/02/19 08:40 Urine Ketones NEGATIVE mg/dL (NEGATIVE) 10/02/19 08:40 Urine Blood NEGATIVE (NEGATIVE) 10/02/19 08:40 Urine Nitrite NEGATIVE (NEGATIVE) 10/02/19 08:40 Urine Bilirubin NEGATIVE (NEGATIVE) 10/02/19 08:40 Urine Urobilinogen 2.0 mg/dL (<2.0) H 10/02/19 08:40 Ur Leukocyte Esterase NEGATIVE (NEGATIVE) 10/02/19 08:40 Urine WBC (Auto) 2 /HPF 10/02/19 08:40 Urine RBC (Auto) 1 /HPF 10/02/19 08:40 Urine Bacteria (Auto) 1+ /HPF 10/02/19 08:40 Squamous Epi Cells Auto 3 /HPF 10/02/19 08:40 Urine Mucus (Auto) MOD /LPF 10/02/19 08:40 Urine Ascorbic Acid NEGATIVE (NEGATIVE) 10/02/19 08:40 Slides for Path Review Cancelled 10/01/19 14:42 10/01/19 10/02/19 14:42 04:43 CK-MB (CK-2) 1.56 Troponin I 0.245 0.224 Plan Time Spent: Greater than 30 Minutes - Patient was put on a tapering dose of the steroid adjust the insulin dose for blood sugar discussed with the patient to use sliding scales follow-up with the oncology tomorrow and follow in office 1 week Stroke Is this a Stroke Patient?: No Acute Heart Failure - Is this a Heart Failure Patient?: No
--- NOTE | 2019-10-05 08:34 | PDOC PROGRESS REPORT ---
Subjective Progress Note for:: 10/05/19 Subjective:: Patient did better over the last 24 hours. Stabilized on her current oxygen, she will need 3 L. Reason For Visit: HYPOXIA/PE/LUNG CANCER Physical Exam Vital Signs: Temp Pulse Resp BP Pulse Ox 98.6 F 89 16 145/90 H 96 10/05/19 07:46 10/05/19 07:58 10/05/19 07:58 10/05/19 07:46 10/05/19 07:58 Intake & Output 10/04/19 10/05/19 10/06/19 06:59 06:59 06:59 Intake Total 942 1447 Output Total 0 Balance 942 1447 Weight 92.5 kg 92 kg General appearance: PRESENT: no acute distress, well-developed, well-nourished Head exam: PRESENT: atraumatic, normocephalic Eye exam: PRESENT: conjunctiva pink, EOMI, PERRLA. ABSENT: scleral icterus Ear exam: PRESENT: normal external ear exam Mouth exam: PRESENT: moist, tongue midline Neck exam: ABSENT: carotid bruit, JVD, lymphadenopathy, thyromegaly Respiratory exam: PRESENT: clear to auscultation amara. ABSENT: rales, rhonchi, wheezes Cardiovascular exam: PRESENT: RRR. ABSENT: diastolic murmur, rubs, systolic murmur Pulses: PRESENT: normal dorsalis pedis pul Vascular exam: PRESENT: normal capillary refill GI/Abdominal exam: PRESENT: normal bowel sounds, soft. ABSENT: distended, guarding, mass, organolmegaly, rebound, tenderness Rectal exam: PRESENT: deferred Extremities exam: PRESENT: full ROM. ABSENT: calf tenderness, clubbing, pedal edema Neurological exam: PRESENT: alert, awake, oriented to person, oriented to place, oriented to time, oriented to situation, CN II-XII grossly intact. ABSENT: motor sensory deficit Psychiatric exam: PRESENT: appropriate affect, normal mood. ABSENT: homicidal ideation, suicidal ideation Skin exam: PRESENT: dry, intact, warm. ABSENT: cyanosis, rash Results Laboratory Results: 10/05/19 04:53 10/05/19 04:53 10/05/19 10/05/19 04:53 04:53 WBC 6.3 RBC 3.98 Hgb 9.0 L Hct 28.5 L MCV 72 L MCH 22.5 L MCHC 31.5 L RDW 19.5 H Plt Count 167 Seg Neutrophils % Not Reportable Sodium 138.6 Potassium 5.1 H Chloride 108 H Carbon Dioxide 24 Anion Gap 7 BUN 16 Creatinine 1.22 Est GFR ( Amer) 53 L Glucose 151 H Calcium 8.8 10/01/19 10/02/19 10/02/19 14:42 04:43 04:43 Creatine Kinase 55 CK-MB (CK-2) 1.56 Troponin I 0.245 0.224 Assessment & Plan - Diagnosis (1) Pulmonary emboli Qualifiers: Chronicity: acute Acute cor pulmonale presence: without acute cor pulmonale Is this a current diagnosis for this admission?: Yes Plan: DC home today, we will follow her up in 2 weeks. She will need to be on lifelong Arixtra. (2) Adenocarcinoma of right lung, stage 4 Is this a current diagnosis for this admission?: Yes Plan: PET/CT planned tomorrow in [place] (3) Pneumonitis Is this a current diagnosis for this admission?: Yes Plan: Patient started on IV steroids, transition to oral prednisone 60 mg daily for a week, 40 mg daily x 1 wk then 20 mg daily x 1 wk then stop. - Time Time Spent with patient: 35 or more minutes
[2019-10-05] MEDS: ENOXAPARIN SODIUM INJ 100 MG/1 ML DISP.SYRIN SUBCUT SCH (09:08)
[2019-10-05] MEDS: LOSARTAN POTASSIUM 50 MG TABLET PO SCH (09:10)
[2019-10-05] MEDS: METHYLPREDNISOLONE INJ 40 MG/1 ML SDV IV SCH (09:11)
[2019-10-05] MEDS: DOCUSATE SODIUM 100 MG CAPSULE PO SCH (09:11)
--- NOTE | 2019-10-05 09:26 | PDOC PROGRESS REPORT ---
Subjective Progress Note for:: 10/05/19 Subjective:: In bed comfortably. No distress is voiced. No complaints of chest pain or dyspnea. Awaiting discharge Reason For Visit: HYPOXIA/PE/LUNG CANCER Physical Exam Vital Signs: Temp Pulse Resp BP Pulse Ox 98.6 F 89 16 145/90 H 96 10/05/19 07:46 10/05/19 07:58 10/05/19 07:58 10/05/19 07:46 10/05/19 07:58 Intake & Output 10/04/19 10/05/19 10/06/19 06:59 06:59 06:59 Intake Total 942 1447 Output Total 0 Balance 942 1447 Weight 92.5 kg 92 kg General appearance: PRESENT: morbidly obese Head exam: PRESENT: atraumatic, normocephalic Eye exam: PRESENT: EOMI Mouth exam: PRESENT: dry mucosa Respiratory exam: PRESENT: crackles, rales, symmetrical, unlabored, wheezes Cardiovascular exam: PRESENT: RRR, +S1, +S2, systolic murmur Pulses: PRESENT: normal radial pulses GI/Abdominal exam: PRESENT: soft Rectal exam: PRESENT: deferred Neurological exam: PRESENT: alert, awake, oriented to person, oriented to place, oriented to situation Psychiatric exam: PRESENT: appropriate affect Skin exam: PRESENT: intact, normal color Results Laboratory Results: 10/05/19 04:53 10/05/19 04:53 10/05/19 10/05/19 04:53 04:53 WBC 6.3 RBC 3.98 Hgb 9.0 L Hct 28.5 L MCV 72 L MCH 22.5 L MCHC 31.5 L RDW 19.5 H Plt Count 167 Seg Neutrophils % Not Reportable Sodium 138.6 Potassium 5.1 H Chloride 108 H Carbon Dioxide 24 Anion Gap 7 BUN 16 Creatinine 1.22 Est GFR ( Amer) 53 L Glucose 151 H Calcium 8.8 10/01/19 10/02/19 10/02/19 14:42 04:43 04:43 Creatine Kinase 55 CK-MB (CK-2) 1.56 Troponin I 0.245 0.224 Assessment & Plan - Diagnosis (1) Elevated troponin Is this a current diagnosis for this admission?: Yes Plan: Probably secondary to hypoxia. Supportive care. Unlikely to be acute coronary syndrome (2) Pulmonary emboli Qualifiers: Chronicity: acute Acute cor pulmonale presence: without acute cor pulmonale Is this a current diagnosis for this admission?: Yes Plan: Presently on enoxaparin therapy. CT scan showing pulmonary emboli bilaterally. It is thought that patient had new pulmonary emboli while on systemic anticoagulation with rivaroxaban. Plan is to use injectable systemic anticoagulation. Follow-up in [place] for further evaluation (3) Pericardial effusion Is this a current diagnosis for this admission?: Yes Plan: Previous history of pericardial effusion, likely malignant that required pericardial window last year. This was performed in [place]. Transthoracic echocardiogram done this admission and reviewed by me shows no pericardial effusion and with low normal systolic function with ejection fraction estimated at 50 to 55%. - Notes Notes: Awaiting discharge on injectable systemic anticoagulation for pulmonary embolism while on rituximab therapy. Close follow-up with [facility]. From a cardiac standpoint she is doing well. No evidence of pericardial effusion on transthoracic echocardiogram.
== END 2019-10-05 10:44 | disposition home health service (06) | DRG 176 ==
LOC: ER 14:32 → EH 18:11 → 3W 21:15
PROVIDERS: ADMIT Family Medicine; ATTEND Family Medicine
DX: I26.99 Other pulmonary embolism without acute cor pulmonale (principal); C34.91 Malignant neoplasm of unspecified part of right bronchus or lung; J44.0 Chronic obstructive pulmonary disease with (acute) lower respiratory infection; J70.0 Acute pulmonary manifestations due to radiation; E11.9 Type 2 diabetes mellitus without complications; K21.9 Gastro-esophageal reflux disease without esophagitis; I10 Essential (primary) hypertension; R09.02 Hypoxemia; Y84.2 Radiological procedure and radiotherapy as the cause of abnormal reaction of the patient, or of later complication, without mention of misadventure at the time of the procedure; I25.10 Atherosclerotic heart disease of native coronary artery without angina pectoris; E66.01 Morbid (severe) obesity due to excess calories; E78.00 Pure hypercholesterolemia, unspecified; Z79.899 Other long term (current) drug therapy; Z79.4 Long term (current) use of insulin; Z79.01 Long term (current) use of anticoagulants; Z99.81 Dependence on supplemental oxygen; Z92.3 Personal history of irradiation; Z87.891 Personal history of nicotine dependence
CPT/HCPCS: 36415; 80048; 80053; 81001; 82550; 82553; 82962; 83735; 84484; 85025; 85610; 85730; 87040; 93005; 93010; 93306; 94640; 99291; J1650; J1815; J2920; J3490; J7620

== ENCOUNTER → 2019-10-01 | Outpatient (CLI) | payer BC, MEDICARE ==
--- NOTE | 2019-10-01 14:34 | RADIOLOGY REPORT (SQ) ---
EXAM DESCRIPTION: CTA CHEST COMPLETED DATE/TIME: 10/01/2019 2:13 pm REASON FOR STUDY: R06.02 SHORTNESS OF BREATH, R00.0 TACHYCARDIA, UNSPECIFIED R06.02 SHORTNESS OF BR EATH R00.0 TACHYCARDIA, UNSPECIFIED COMPARISON: 09/21/2019. TECHNIQUE: CT scan of the chest performed using helical scanning technique with dynamic intravenous contrast injection. Images reviewed with lung, soft tissue and bone windows. Reconstructed coronal and sagittal MPR images reviewed. Additional 3 dimensional post-processing performed to develop Maximal Intensity Projection images ([place] P). All images stored on PACS. All CT scanners at this facility use dose modulation, iterative reconstruction, and/or weight based d osing when appropriate to reduce radiation dose to as low as reasonably achievable (ALARA). [facility]: Dose Right [facility]: CareDose [facility]: Dose Right [facility]: Teradose 4D [facility]: [employer] CONTRAST TYPE AND DOSE: contrast/concentration: Isovue 350.00 mg/ml; Total Contrast Delivered: 61.0 ml; Total Saline Delivered: 80.0 ml Contrast bolus optimized for the pulmonary arteries. Not diagnostic for the aorta. RENAL FUNCTION: Creatinine 0.7. RADIATION DOSE: CT Rad equipment meets quality standard of care and radiation dose reduction techniq ues were employed. CTDIvol: 9.4 - 15.5 mGy. DLP: 582 mGy-cm. . LIMITATIONS: None. FINDINGS: LUNGS AND PLEURA: Chronic fibrotic changes. Right pleural effusion. AORTA AND GREAT VESSELS: No aneurysm. Contrast bolus not optimized for the aorta. HEART: Cardiomegaly. Small pericardial effusion. No significant coronary artery calcifications. PULMONARY ARTERIES: Numerous nonobstructing emboli in multiple arterial branches to the right and lef t lower lobe. HILAR AND MEDIASTINAL STRUCTURES: No identified masses or abnormal nodes. HARDWARE: None in the chest. UPPER ABDOMEN: No significant findings. Limited exam. THYROID AND OTHER SOFT TISSUES: No masses. No adenopathy. BONES: No acute or significant finding. 3D MIPS: Confirm above findings. OTHER: No other significant finding. IMPRESSION: 1. PULMONARY EMBOLI INVOLVING MULTIPLE ARTERIAL BRANCHES TO THE RIGHT AND LEFT LOWER LOBE. 2. CARDIOMEGALY. SMALL PERICARDIAL EFFUSION. 3. CHRONIC FIBROTIC CHANGES IN THE LUNGS, PARTICULARLY THE LUNG APICES. RIGHT PLEURAL EFFUSION. COMMENT: Preliminary report was called by the technologist to the referring clinician's office at th e time of the exam. Quality ID # [id number]: Final reports with documentation of one or more dose reduction techniques (e.g., Au tomated exposure control, adjustment of the mA and/or kV according to patient size, use of iterative reconstruction technique) TECHNICAL DOCUMENTATION: JOB ID: [id number] [employer]- All Rights Reserved Reading location - IP/workstation name: [email or web address]
== END ==
LOC: RAD 13:30
PROVIDERS: ATTEND Physician Assistant
DX: R06.02 Shortness of breath (principal); R00.0 Tachycardia, unspecified; E11.69 Type 2 diabetes mellitus with other specified complication; J44.9 Chronic obstructive pulmonary disease, unspecified; R09.02 Hypoxemia
CPT/HCPCS: 71275; 82565